=== PATIENT | female | born 1955 | race Caucasian/White ===

== ENCOUNTER 2016-12-04 06:42 | Day surgery (SDC) | payer BC ==
[~2016-12-04 06:42] MED LIST: Buffered Lidocaine 0.9% SYRIN* 5 ML/SYR SYRINGE INTRADERM ONE; Dexamethasone IV* 4 MG/ML 1 ML (4 MG) IV SLOW PU ONE; Dexamethasone IV* 4 MG/ML 1 ML (4 MG) ONE; Famotidine IV* 10 MG/ML 2 ML (20 mg) IV ONE; Famotidine IV* 10 MG/ML 2 ML (20 mg) ONE
[2016-12-04] MEDS ORDERED: ceFAZolin 2 GM PREMIX (*) 2 GM/50 ML BAG IVPB ONE (06:54)
[2016-12-04] MEDS ORDERED: Bupivacaine 0.25% SDV* 30 ML ONE (07:19)
[2016-12-04] MEDS ORDERED: Ketorolac INJ* 30 MG/ML 1 ML VIAL ONE ×2 (07:22→08:17)
[2016-12-04] MEDS ORDERED: Propofol* 10 MG/ML 20 ML BTL IV PUSH ONE (07:22)
[2016-12-04] MEDS ORDERED: fentaNYL* 50 MCG/ML 2 ML VIAL (100 MCG VIAL) ONE ×2 (07:23→09:12)
[2016-12-04] MEDS ORDERED: Midazolam* 1 MG/ML 2 ML VIAL (2 MG) ONE (07:23)
[2016-12-04] MEDS ORDERED: fentaNYL* 50 MCG/ML 2 ML VIAL (100 MCG VIAL) IV PRN (07:32)
[2016-12-04] MEDS ORDERED: HYDROcodone/ACETAMIN 5-325 MG* 1 TAB PO PRN (07:32)
[2016-12-04] MEDS ORDERED: Acetaminophen TAB* 325 MG PO PRN (07:32)
[2016-12-04] MEDS ORDERED: oxyCODONE TAB* 5 MG TAB PO PRN (07:32)
[2016-12-04] MEDS ORDERED: PROCHLORPERAZINE INJ 5 MG/ML 2 ML VIAL IV PRN (07:32)
[2016-12-04] MEDS ORDERED: EPHEDrine (Pressors)* 50 MG/ML VIAL ONE (07:56)
[2016-12-04] MEDS ORDERED: Ondansetron INJ* 2 MG/ML VIAL ONE (08:49)
[2016-12-04] MEDS ORDERED: PROCHLORPERAZINE INJ 5 MG/ML 2 ML VIAL ONE (10:35)
[2016-12-04 10:51] VITALS: BP 122/82
--- NOTE | 2016-12-05 03:20 | OP ---
OPERATIVE REPORT: DATE OF OPERATION: 12/04/16 - MOO DATE OF : 51 SURGEON: Israel Funes MD. STUDENT LIFE ADVISOR: MIKE Mabry. An cement tester assistant was needed for the entirety of the procedure to aid in positioning of the arm and retraction. ANESTHESIOLOGIST: Cem Yoo MD. ANESTHESIA: General. PRE-OP DIAGNOSES: 1. Left stage 3 basal joint arthritis. 2. Significant hyperextension laxity of the left thumb metacarpophalangeal joint. POST-OP DIAGNOSES: 1. Left stage 4 basal joint arthritis. 2. Significant hyperextension laxity of the left thumb metacarpophalangeal joint. OPERATIVE PROCEDURE: 1. Left thumb basal joint arthroplasty with trapeziectomy and distally based split flexor carpi radialis tendon transfer for thumb suspension and tendon interposition. 2. Left partial trapeziodectomy. 3. Left thumb metacarpophalangeal joint volar capsular imbrication. INDICATIONS: Julissa has had progressive pain in the base of the thumb. She is really significantly impacting her quality of life. We talked about her treatment options and nonoperative treatment options and surgery and she had wanted to proceed. We talked about the risks and benefits and expected postoperative course. ESTIMATED BLOOD LOSS: 5 mL. COMPLICATIONS: None. FINDINGS: As expected with the exception of full thickness cartilage loss of the distal pole of the scaphoid in the scaphoid trapezoid joint and also off of the distal pole of the scaphoid and the scaphotrapezial joint. DESCRIPTION OF PROCEDURE: Julissa was seen in the preoperative holding area. The correct side, site, and procedure were identified. We came back to the operating room where the anesthesia was induced, the arm was prepped and draped in the usual fashion. A time-out was performed. We exsanguinated the arm with the Esmarch and the tourniquet was inflated to 250 mmHg. I then made a longitudinal incision from the dorsal base of the first metacarpal done towards the radial styloid of about 2 to 3 cm. The dissection was carried down longitudinally to preserve the dorsal sensory radial nerves. The radial artery was identified and mobilized. I cauterized the venous plexus there and then made a longitudinal incision through the capsule and periosteum over the trapezium. Full thickness subperiosteal and capsular flaps were raised. The soft tissue around the trapezium was released with a oneida blade. I used the rongeur to excise the trapezium in its entirety. Once the entirety of the trapezium was excised and there were no bony fragments were made, I went ahead and pulled longitudinal traction on the second metacarpal and inspected the scaphotrapezoid joint. The entirety of the distal pole of the scaphoid was to void of articular cartilage. This involves both the scaphotrapezial and the scaphotrapezoid joints. I went ahead and took my osteotome and excised the proximal 2 to 3 mm of trapezoid. Once I had that excised, I irrigated out and got the joint nice and clean. I then placed axial traction on the second metacarpal and took at the wrist through flexion and extension. I could not get the base of the proximal aspect of the trapezoid to contact the distal pole of the scaphoid. At this point, I went ahead and raised the subperiosteally the soft tissue off of the dorsal radial base of the first metacarpal. I used sequentially larger drill bits to clear a bone tunnel from the dorsoradial thumb metacarpal base extending out the volar ulnar articular surface of the thumb metacarpal base. Once I had a drill hole created , we irrigated out the wound and turned our attention on the forearm. I made a 1-cm transverse incision over the distal FCR tendon just proximal to the wrist flexion crease. The tendon was created at the sheath and then brought up into the wound where it was split longitudinally and a 25-gauge wire was passed through the split. I then made 2 separate transverse incisions each about 7 or 8 cm proximal to the left and the FCR tendon sheath was released along its entirety. I then used Kimberly clamp to retrieve the 25-gauge wire and pulled it sequentially into the 2 more proximal wounds releasing the half of the FCR tendon at the musculotendinous junction. This was pulled into the distal wound and then brought up where the tendon split into the tendon, which created its muscular remnants and the edge of the tendon was sewed with 3-0 Ethibond to prevent fraying and splitting during the transfer. I then used two 25-gauge wires to shuttle the tendon down into the thumb base wound through the remaining FCR sheath distally. I then completed the split down to the base of the second metacarpal with the tenotomy scissors. The wires were used to pass the tendon through the drill hole and the base of the thumb metacarpal and then back around the intact limb of the FCR. Appropriate tension was set and this tendon transfer was secured with three 3-0 Ethibond [id number] sutures, the first grabbed in all 3 limbs of the transfer and then the second 2 sewing intact limb to intact limb. The remainder of the tendon was sewn with 4-0 Vicryl into a mat and this was placed as an interposition between the base of the trapezoid and the distal pole of the scaphoid. The remainder of the tendon was placed between the distal pole of the scaphoid and the base of the thumb metacarpal. The capsule was then closed with 3-0 Ethibond figure- of-eight sutures. Once I had a watertight seal, I went ahead and turned our attention to the volar aspect of the thumb metacarpophalangeal joint. I raised a Danika type V-shaped flap radially based over the volar aspect of the thumb metacarpophalangeal joint. The A1 ita was split. The tendon was retracted. I mobilized the volar plate by releasing it radially, proximally, and ulnarly. I then placed a Mini Mitek suture anchor into the distal metacarpal. The volar plate was advanced and sewn in place with the 2 limbs of the suture coming off of the suture anchor. This was done with the thumb MCP joint and 30 degrees of flexion. I took some 4-0 Vicryl suture and secured the remainder of the volar plate back into place. When I tested the stability, I could get the thumb just to neutral extension, but not into hyperextension. I was very pleased with this. We therefore irrigated out the wounds. All the wounds were then closed with 4-0 nylon suture. The 0.25% Marcaine was infiltrated into all of the wounds. The wounds were dressed with Xeroform, 4x4s , Sterile Webril, and a thumb spica splint was placed, holding the MCP joint in 30 degrees of flexion and the metacarpal in abduction. Once the thumb spica splint was on, the tourniquet was deflated and the hand pinked up immediately. She was then woken up and taken to the recovery room in stable condition. [id number]/[facility] [place] #: [id number] ALEKS
== END 2016-12-04 11:05 | disposition home or self-care (01) ==
LOC: OREAST 06:42
PROVIDERS: ATTEND Orthopaedic Surgery Hand Surgery
DX: M18.0 Bilateral primary osteoarthritis of first carpometacarpal joints (principal); M24.842 Other specific joint derangements of left hand, not elsewhere classified; I10 Essential (primary) hypertension; E78.5 Hyperlipidemia, unspecified; Z85.828 Personal history of other malignant neoplasm of skin; Z87.891 Personal history of nicotine dependence
CPT/HCPCS: 88304; 88311; C1713; J0690; J0780; J1100; J1885; J2250; J2405; J2704; J3010

== ENCOUNTER 2018-06-10 08:15 | Inpatient (IN) | payer BC ==
--- NOTE | 2018-05-31 14:42 | HP ---
HISTORY AND PHYSICAL: DATE OF ADMISSION/SURGERY: 06/10/18 DATE OF OFFICE VISIT: 05/31/18 SURGEON: Lynnette Ibrahim MD* (dictated by MIKE Ashford). PROCEDURE: Right total knee arthroplasty. CHIEF COMPLAINT: Right knee pain. HISTORY OF PRESENT ILLNESS: Ms. Rollins is a 62-year-old female with endstage osteoarthritis of the right knee. She has failed conservative treatment and elected to proceed with the right total knee arthroplasty. PAST MEDICAL HISTORY: 1. Hypertension. 2. Squamous cell carcinoma of the skin. PAST SURGICAL HISTORY: 1. Left foot surgery. 2. Left hand surgery. CURRENT MEDICATIONS: 1. Escitalopram 10 mg a day. 2. Atenolol 50 mg twice a day. 3. Fenofibrate 54 mg a day. 4. Simvastatin 10 mg q.h.s. 5. Vitamin B12 monthly injection. 6. Tylenol as needed. ALLERGIES: No known drug allergies. FAMILY HISTORY: Colon cancer and coronary artery disease. SOCIAL HISTORY: She is a 62-year-old female. She lives with her . She does not smoke or use drugs, uses occasional alcohol. REVIEW OF SYSTEMS: A complete 14-point review of systems reviewed with the patient. It was all negative and noncontributory. She denies a history of DVT , PE, hepatitis, HIV, or anesthesia problems. PHYSICAL EXAMINATION GENERAL: She is well developed, well nourished, in no acute distress. VITAL SIGNS: She stands 62 inches tall, weighs 147 pounds. Her blood pressure is 122/64, heart rate 60. HEENT: Normocephalic, atraumatic. NECK: Supple, no palpable lymph nodes. PULMONARY: Lungs are clear to auscultation bilaterally. CARDIAC: Regular rate and rhythm. Strong S1 and S2. ABDOMEN: Soft, nontender, nondistended. NEUROLOGICAL: She is alert and oriented x3. MUSCULOSKELETAL: Right lower extremity, the skin is intact. There are no open wounds or abrasions. There is a 12-degree valgus deformity of the right knee. There is some moderate effusion. Range of motion is 5 to 125 degrees of flexion with significant patellofemoral crepitus. Her calf is soft and nontender. She is able to dorsiflex and plantarflex. She has a 2+ dorsalis pedis pulse and intact sensation. ASSESSMENT AND PLAN: Ms. Rollins is a 62-year-old female with endstage osteoarthritis of the right knee. She has failed conservative treatment and elected to proceed with a right total knee arthroplasty. The surgery is scheduled for 06/10/[address] Ibrahim discussed the risks and benefits of the surgery at today's visit and all of her questions were answered. She will follow up with Dr. Ibrahim 2 weeks after the surgery. MIKE ASHFORD [id number]/[facility] #: [id number] ALEKS
[~2018-06-10 08:15] MED LIST changes: +Acetaminophen TAB* 325 MG PO ONE; -Buffered Lidocaine 0.9% SYRIN* 5 ML/SYR SYRINGE INTRADERM ONE; +Buffered Lidocaine 1% SYRIN* 1 ML/SYRINGE INTRADERM ONE; -Dexamethasone IV* 4 MG/ML 1 ML (4 MG) IV SLOW PU ONE; -Dexamethasone IV* 4 MG/ML 1 ML (4 MG) ONE; -Famotidine IV* 10 MG/ML 2 ML (20 mg) ONE; +Gabapentin CAP(*) 300 MG PO ONE; +Lactated Ringers 1000 ML Bag* 1,000 ML IV SCH; +Tranexamic Acid 1,000 MG in NS 0.9% 50 ML* (outpatient use) IV SCH; +celeCOXIB CAP* 200 MG PO ONE
--- OUTSIDE RECORDS SUMMARY | 2018-06-10 08:34 | XMS REPORT | Continuity of Care Document ---
:1955 External Reference #:[id number] Author Name SadiaSarah will Care Team Providers Name Role Phone Tory Crowell MD Primary Care Physician Unavailable Payers Date Identification Numbers Payment Provider Subscriber Effective: 2016 Policy Number: [id number] [employer] Darius Vigil PayID: [id number] [address] [address] [place] [address] Effective: 2010 Policy Number: [id number] BS Of [place] Darius Vigil Expires: 2014 PayID: [id number] [address] [address] [place] [address] Advance Directives Description No Information Available Problems Date Description Provider Status Onset: 04/24/2010 Mixed hyperlipidemia Anila Melton M.D., FACP Active Onset: 04/24/2010 Benign essential hypertension Spike Hill M.D. Active Onset: 10/29/2016 Localized, primary osteoarthritis Israel Funes MD Active of the hand Onset: 12/11/2017 Localized, primary osteoarthritis Lynnette Ibrahim M.D. 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 Tobacco Use Start: Unknown End: Former Cigarette Smoker Quit ~ 1982 Unknown 1 Pack Daily Smoking Status Reviewed: 05/31/18 Former Cigarette Smoker Quit ~ 1982 1 Pack Daily ETOH Use Currently consumes 2 glasses of wine alcohol daily Tobacco Use Start: Unknown End: Patient is a former quit at age 28 Unknown smoker Exercise Type/Frequency Exercises regularly Allergies, Adverse Reactions, Alerts Description No Known Drug Allergies Medications Medication Date Status Form Strength Qnty SIG Indications Ordering Provider Voltaren 04/30 Active Gel 1% 100un apply 4 Gm M25.562 its to affected Varn, area four N.P. times daily BD 05/05 Active 3ml 6unit use as s directed for Varn, vitamin b 12 N.P. injection once a month Fenofibrate 04/24 Active Tablets 54mg 90tab take 1 s tablet by Varn, mouth daily N.P. Omeprazole 02/[address] 20mg 90cap take 1 s capsule once Varn, daily if N.P. needed Syringes 08/15 Active 25Gauge 1 30uni use as Inch ts directed for Varn, vitamin b12 N.P. injections once monthly Simvastatin Active Tablets 10mg 90tab take 1 s tablet at Varn, bedtime N.P. Atenolol Active Tablets 50mg 90tab take 1 Ayse /0000 s tablet twice Varn, a day N.P. Cyanocobalamin Active Solution 1000mcg/M 1unit inject 1 L s milliliters Varn, intramuscula N.P. r once a month Tylenol Active Escitalopram 04/30 Hx Tablets 10mg 30tab 1 by mouth F32.9 s every day Varn, - N.P. 05/30 Meloxicam 12/11 Hx Tablets 15mg 30tab 1 by mouth M25.461 Lynnette s every day Patrice - (not taking) Omid 04/30 Tramadol HCL 12/04 Hx Tablets 50mg 30tab 1-2 tablets s every 6 Funes, - hours as 03/17 Ibuprofen 12/04 Hx Tablets 600mg 60tab 1 by mouth s three times Funes, - a day as 05/30 needed Hydrocodone-Jani 12/01 Hx Tablets 5-325mg 30tab 1 or 2 tabs Israel taminophen s by mouth Funes, - every 6-8 12/04 hours needed for postop pain Syringe 2-3 ML 03/31 Hx Misc 3ml 30uni to use for ts b12 Varn, - injections N.P. 03/31 Escitalopram 08/22 Hx Tablets 10mg 30tab 1 by mouth 311 s every day Varn, - N.P. 02/28 Ciclopirox 02/21 Hx Solution 8% 6.600 apply to 110.1 ml affected Varn, - toenails and N.P. 08/22 skin at bedtime Lac-Hydrin 02/21 Hx Cream 12% 385gm apply once 782.1 daily as Varn, - needed N.P. 02/28 Fluticasone 02/01 Hx Suspension 50mcg/Act 1bott 1 spray each le nostril in Varn, - in the N.P. 05/30 Physical 07/23 Hx left ankle 719.47 Anila pain Joanie Melton M.D., 11/05 FACP Omeprazole 02/[address] 20mg 90cap 1 tablet Anila s daily as Linh, - needed for Omid, 01/04 stomach FACP discomfort Syringes 08/15 Hx Anila /2009 Joanie Melton M.D., 08/15 FACP Minocycline HCL Hx 50mg Casa, /0000 Blanquita, - 10/24 Minocycline HCL Hx 50mg Casa, /0000 Blanquita - 10/24 Prempro Hx 0.625-2.5 1 tablet Linh, /0000 mg daily AnilaJoanie MD 12/06 Sulfacetamide Hx 10% apply daily Casa, Sodium /0000 Blanquita, Joanie DUMONT 08/22 Diazepam Hx 5mg Montanye, /0000 Art - 10/24 Valacyclovir Hx 500mg Linh, HCL /0000 Joanie High MD 10/24 Oracea Hx 40mg Casa, /0000 Joanie Juares MD 10/24 Finacea Hx 15% Casa, /0000 Joanie Juares MD 10/24 Rhinocort Aqua Hx 32mcg/Act 3unit 1 spray each Anila /0000 s nostril Linh, - daily M.DCarlos, 01/04 Medications Administered in Office Medication Date Status Form Strength Qnty SIG Indications Ordering Provider Synvisc Or Administered Injection Lynnette Synvisc-One Onesimo Ibrahim M.D. Injection 1 MG Synvisc Or Administered Injection Lynnette Synvisc-One Blanca Ibrahim M.D. Injection 1 MG Synvisc Or Administered Injection Lynnette Synvisc-One Blanca Ibrahim M.D. Injection 1 MG Synvisc Or Administered Injection Lynnette Synvisc-One Blanca Ibrahim M.D. Injection 1 MG Synvisc Or Administered Injection Lynnette Synvisc-One Blanca Ibrahim M.D. Injection 1 MG Synvisc Or Administered Injection Lynnette Synvisc-One Blanca Ibrahim M.D. Injection 1 MG Depomedrol Administered Injection Lynnette 40MG Blanca Ibrahim M.D. Depomedrol Administered Injection Lynnette 40MG Blanca Ibrahim M.D. B-12 Injection Administered Injection Nurse Visit 014 A Immunizations CPT Code Status Date Vaccine Lot # [id number] Given 11/12/2017 Influenza Virus Vaccine, Quadrivalent, Split, Preservative Free [id number] Given 12/25/2015 Flu Vaccine NOS 16550 Given 11/25/2014 Influenza Virus Vaccine, Quadrivalent, Split, Preservative Free Q2037 Given 10/24/2013 Fluvirin Im 3Yrs And Older Q2037 Given 12/25/2012 Fluvirin Im 3Yrs And Older Q2035 Given 11/12/2011 Afluria Vaccine 06681 Given 11/06/2010 Influenza Virus 3Yrs & Over 10630 Given 11/06/2010 Influenza Virus 3Yrs & Over 93584 Given 11/06/2010 Influenza Virus 3Yrs & Over [id number] 16567 Given 12/06/2009 Influenza Virus 3Yrs & Over 01946 Given 12/13/2008 Influenza Virus 3Yrs & Over 58904 Given 09/02/2007 Tdap - Tetanus/Diptheria/Acellular Pertussis Vital Signs Date Vital Result Comment 05/31/2018 12:57pm Height 62 inches 5'2" Weight 147.00 lb Heart Rate 60 /min BP Systolic 122 mmHg BP Diastolic 62 mmHg Respiratory Rate 18 /min Body Temperature 98.9 F Pain Level 0 BMI (Body Mass Index) 26.9 kg/m2 05/26/2018 3:37pm Height 62 inches 5'2" Weight 150.00 lb Heart Rate 60 /min BP Systolic Sitting 137 mmHg BP Diastolic Sitting 81 mmHg O2 % BldC Oximetry 98 % BMI (Body Mass Index) 27.4 kg/m2 05/07/2018 9:10am Height 62 inches 5'2" Weight 145.00 lb Heart Rate 60 /min BP Systolic Sitting 110 mmHg BP Diastolic Sitting 70 mmHg Respiratory Rate 18 /min Pain Level 3 BMI (Body Mass Index) 26.5 kg/m2 04/30/2018 3:34pm Height 62 inches 5'2" Weight 152.00 lb Heart Rate 56 /min BP Systolic 132 mmHg BP Diastolic 80 mmHg Body Temperature 97.7 F O2 % BldC Oximetry 98 % BMI (Body Mass Index) 27.8 kg/m2 04/16/2018 4:05pm Height 62 inches 5'2" Weight 151.00 lb Heart Rate 69 /min BP Systolic 138 mmHg BP Diastolic 82 mmHg Body Temperature 97.7 F O2 % BldC Oximetry 97 % BMI (Body Mass Index) 27.6 kg/m2 02/17/2018 9:14am Height 62 inches 5'2" Weight 145.00 lb BP Systolic 124 mmHg BP Diastolic 84 mmHg Body Temperature 98.2 F BMI (Body Mass Index) 26.5 kg/m2 02/01/2018 8:52am Height 62.5 inches 5'2.50" Weight 145.00 lb BP Systolic 120 mmHg BP Diastolic 80 mmHg Body Temperature 97.6 F BMI (Body Mass Index) 26.1 kg/m2 01/25/2018 8:34am Height 62 inches 5'2" Weight 145.00 lb BP Systolic 108 mmHg BP Diastolic 64 mmHg Body Temperature 98.2 F BMI (Body Mass Index) 26.5 kg/m2 01/18/2018 8:23am Height 62 inches 5'2" Weight 144.00 lb BP Systolic 118 mmHg BP Diastolic 72 mmHg Body Temperature 98.4 F BMI (Body Mass Index) 26.3 kg/m2 01/01/2018 3:43pm Height 62 inches 5'2" Heart Rate 63 /min BP Systolic 108 mmHg BP Diastolic 60 mmHg Respiratory Rate 17 /min Pain Level 2 12/11/2017 11:24am Height 62 inches 5'2" Weight 150.00 lb BP Systolic 131 mmHg BP Diastolic 82 mmHg Respiratory Rate 16 /min Pain Level 5 BMI (Body Mass Index) 27.4 kg/m2 10/21/2017 3:00pm Height 62 inches 5'2" Weight 147.00 lb Heart Rate 55 /min BP Systolic 113 mmHg BP Diastolic 71 mmHg O2 % BldC Oximetry 100 % BMI (Body Mass Index) 26.9 kg/m2 03/17/2017 3:48pm Heart Rate 62 /min BP Systolic 130 mmHg BP Diastolic 78 mmHg Respiratory Rate 16 /min Body Temperature 97.0 F Pain Level 0 11/14/2016 3:00pm Heart Rate 64 /min BP Systolic Sitting 128 mmHg BP Diastolic Sitting 78 mmHg Body Temperature 97.8 F 10/29/2016 12:57pm Height 62.5 inches 5'2.50" Weight 157.00 lb Heart Rate 64 /min BP Systolic 105 mmHg BP Diastolic 71 mmHg Body Temperature 98.3 F Pain Level 7 BMI (Body Mass Index) 28.3 kg/m2 10/16/2016 9:51am Height 62.5 inches 5'2.50" Weight 157.25 lb Heart Rate 74 /min BP Systolic 122 mmHg BP Diastolic 70 mmHg Body Temperature 97.6 F O2 % BldC Oximetry 99 % BMI (Body Mass Index) 28.3 kg/m2 04/11/2016 8:32am Height 62.25 inches 5'2.25" Weight 154.25 lb Heart Rate 61 /min BP Systolic 120 mmHg BP Diastolic 80 mmHg Body Temperature 98.6 F O2 % BldC Oximetry 94 % BMI (Body Mass Index) 28.0 kg/m2 10/10/2015 11:03am Height 62.25 inches 5'2.25" Weight 154.50 lb Heart Rate 60 /min BP Systolic Sitting 136 mmHg BP Diastolic Sitting 82 mmHg Body Temperature 98.3 F O2 % BldC Oximetry 100 % BMI (Body Mass Index) 28.0 kg/m2 02/28/2015 9:35am Height 62.5 inches 5'2.50" Weight 154.00 lb Heart Rate 60 /min BP Systolic Sitting 136 mmHg BP Diastolic Sitting 88 mmHg Body Temperature 98.1 F O2 % BldC Oximetry 99 % BMI (Body Mass Index) 27.7 kg/m2 08/22/2014 8:37am Height 62.5 inches 5'2.50" Weight 149.75 lb Heart Rate 63 /min BP Systolic 159 mmHg BP Diastolic 96 mmHg BP Systolic Recheck 138 mmHg BP Diastolic Recheck 88 mmHg Body Temperature 98.6 F BMI (Body Mass Index) 27.0 kg/m2 02/21/2014 8:54am Height 62.5 inches 5'2.50" Weight 145.00 lb Heart Rate 60 /min BP Systolic Sitting 128 mmHg BP Diastolic Sitting 78 mmHg Body Temperature 99.2 F BMI (Body Mass Index) 26.1 kg/m2 02/01/2013 1:57pm Height 62.5 inches 5'2.50" Weight 153.25 lb Heart Rate 68 /min BP Systolic Sitting 142 mmHg BP Diastolic Sitting 80 mmHg BMI (Body Mass Index) 27.6 kg/m2 01/21/2012 3:44pm Height 62.5 inches 5'2.50" Weight 143.00 lb Heart Rate 68 /min BP Systolic Sitting 124 mmHg BP Diastolic Sitting 80 mmHg BMI (Body Mass Index) 25.7 kg/m2 01/05/2012 10:32am Height 62.5 inches 5'2.50" Weight 144.00 lb Heart Rate 60 /min BP Systolic Sitting 136 mmHg BP Diastolic Sitting 80 mmHg BMI (Body Mass Index) 25.9 kg/m2 12/05/2010 3:45pm Height 62 inches 5'2" Weight 147.00 lb Heart Rate 76 /min BP Systolic Sitting 148 mmHg BP Diastolic Sitting 80 mmHg BMI (Body Mass Index) 26.9 kg/m2 11/06/2010 12:50pm Height 62 inches 5'2" Weight 144.00 lb Heart Rate 68 /min BP Systolic Sitting 126 mmHg BP Diastolic Sitting 80 mmHg BMI (Body Mass Index) 26.3 kg/m2 07/23/2010 3:41pm Height 62 inches 5'2" Weight 145.00 lb BMI (Body Mass Index) 26.5 kg/m2 06/06/2010 3:50pm Weight 146.00 lb Heart Rate 66 /min BP Systolic Sitting 124 mmHg BP Diastolic Sitting 82 mmHg 04/24/2010 3:47pm Weight 147.00 lb Heart Rate 62 /min BP Systolic 130 mmHg BP Diastolic 80 mmHg 02/20/2010 2:23pm Weight 146.75 lb Heart Rate 78 /min BP Systolic 118 mmHg BP Diastolic 82 mmHg 12/06/2009 9:09am Weight 147.75 lb Heart Rate 72 /min BP Systolic 120 mmHg BP Diastolic 78 mmHg Results Test Date Facility Test Result H/L Range Note CBC Auto Diff 05/26/2018 [facility] White Blood 7.3 10^3/uL N 3.5-10.[address] [place] [address] [phone] Red Blood Count 3.63 10^6/uL Low 3.70-4.87 Hemoglobin 12.4 g/dL N 12.0-16.0 Hematocrit 36 % N 33-41 Mean Corpuscular Volume 99 fL High 80-97 Mean Corpuscular Hemoglobin 34 pg High 27-31 Mean Corpuscular HGB Conc 35 g/dL N 31-36 Red Cell Distribution Width 13 % N 10.5-15 Platelet Count 214 10^3/uL N 150-450 Mean Platelet Volume 9.1 fL N 7.4-10.4 Abs Neutrophils 4.5 10^3/uL N 1.5-7.7 Abs Lymphocytes 2.0 10^3/uL N 1.0-4.8 Abs Monocytes 0.6 10^3/uL N 0-0.8 Abs Eosinophils 0.2 10^3/uL N 0-0.6 Abs Basophils 0 10^3/uL N 0-0.2 Abs Nucleated RBC 0 10^3/uL Granulocyte % 61.8 % Lymphocyte % 27.0 % Monocyte % 8.5 % Eosinophil % 2.1 % Basophil % 0.6 % Nucleated Red Blood Cells % 0 Comp Metabolic Panel 05/26/2018 [facility] Sodium 138 mmol/L N 135-[address] [place] [address] [phone] Potassium 4.3 mmol/L N 3.5-5.0 Chloride 105 mmol/L N 101-111 Co2 Carbon Dioxide 26 mmol/L N 22-32 Anion Gap 7 mmol/L N 2-11 Glucose 92 mg/dL N 70-100 Blood Urea Nitrogen 19 mg/dL N 6-24 Creatinine 0.79 mg/dL N 0.51-0.95 BUN/Creatinine Ratio 24.1 High 8-20 Calcium 9.2 mg/dL N 8.6-10.3 Total Protein 7.0 g/dL N 6.4-8.9 Albumin 4.3 g/dL N 3.2-5.2 Globulin 2.7 g/dL N 2-4 Albumin/Globulin Ratio 1.6 N 1-3 Total Bilirubin 0.40 mg/dL N 0.2-1.0 Alkaline Phosphatase 52 U/L N 34-104 Alt 15 U/L N 7-52 Ast 17 U/L N 13-39 Egfr Non- 73.3 >60 Egfr 88.7 >60 1 Urinalysis Profile 05/26/2018 [facility] Urine Color Straw [address] [place] [address] [phone] Urine Appearance Clear Urine Specific [place] 1.005 Low 1.010-1.030 Urine pH 5.0 N 5-9 Urine Urobilinogen Negative Negative Urine Ketones Negative Negative Urine Protein Negative Negative Urine Leukocytes Negative Negative Urine Blood 1+ Abnormal Negative Urine Nitrite Negative Negative Urine Bilirubin Negative Negative Urine Glucose Negative Negative Urine White Blood Cell Trace(0-5/hpf) Absent Urine Red Blood Cell Trace(0-2/hpf) Absent Urine Bacteria Absent Absent Inr/Protime 05/26/2018 [facility] Inr 0.94 N 0.77-1.[address] [place], [place] [id number] [phone] Hepatitis Acute 05/26/2018 [facility] Hepatitis B Nonreactive Nonreactive Panel [address] [place] [address] Antigen [phone] Hepatitis B Core IgM Nonreactive Nonreactive Hepatitis A AB IgM Nonreactive Nonreactive HCV Index < 0.0 Index Hepatitis C Antibody Nonreactive Nonreactive Urine Culture And 05/26/2018 [facility] Urine Culture SEE RESULT [address] [place] [address] [phone] Laboratory test 11/19/2017 [facility] Vitamin B12 417 pg/mL N 180-9 [address] [place] [address] [phone] Lipid Profile 2017 [facility] Triglycerides 164 mg/dL 4 (Trig/Chol/HDL) [address] [place], [place] [id number] [phone] Cholesterol 211 mg/dL 5 HDL Cholesterol 71.1 mg/dL 6 LDL Cholesterol 107 mg/dL 7 Comp Metabolic Panel 2017 [facility] Sodium 140 mmol/L N 135-[address] [place] [address] [phone] Potassium 4.9 mmol/L N 3.5-5.0 Chloride 108 mmol/L N 101-111 Co2 Carbon Dioxide 28 mmol/L N 22-32 Anion Gap 4 mmol/L N 2-11 Glucose 102 mg/dL High 70-100 Blood Urea Nitrogen 14 mg/dL N 6-24 Creatinine 0.79 mg/dL N 0.51-0.95 BUN/Creatinine Ratio 17.7 N 8-20 Calcium 9.3 mg/dL N 8.6-10.3 Total Protein 6.4 g/dL N 6.4-8.9 Albumin 4.3 g/dL N 3.2-5.2 Globulin 2.1 g/dL N 2-4 Albumin/Globulin Ratio 2.0 N 1-3 Total Bilirubin 0.70 mg/dL N 0.2-1.0 Alkaline Phosphatase 62 U/L N 34-104 Alt 24 U/L N 7-52 Ast 19 U/L N 13-39 Egfr Non- 73.3 >60 Egfr 88.7 >60 8 Laboratory test 12/04/2016 [facility] Surgical Pathology SEE RESULT 9, [address] [place] [address] [phone] Lipid Profile 04/07/2016 [facility] Triglycerides 190 mg/dL N 11, 12 (Trig/Chol/HDL) [address] [place] [address] [phone] Cholesterol 185 mg/dL N 13 HDL Cholesterol 70.9 mg/dL N 14 LDL Cholesterol 76 mg/dL N 15 Comp Metabolic Panel 04/07/2016 [facility] Sodium 140 mmol/L N 133-[address] [place] [address] [phone] Potassium 4.5 mmol/L N 3.5-5.0 Chloride 104 mmol/L N 101-111 Co2 Carbon Dioxide 28 mmol/L N 22-32 Anion Gap 8 mmol/L N 2-11 Glucose 87 mg/dL N 70-100 Blood Urea Nitrogen 16 mg/dL N 6-24 Creatinine 0.75 mg/dL N 0.51-0.95 BUN/Creatinine Ratio 21.3 High 8-20 Calcium 9.5 mg/dL N 8.6-10.3 Total Protein 6.7 g/dL N 6.4-8.9 Albumin 4.3 g/dL N 3.2-5.2 Globulin 2.4 g/dL N 2-4 Albumin/Globulin Ratio 1.8 N 1-3 Total Bilirubin 0.50 mg/dL N 0.2-1.0 Alkaline Phosphatase 69 U/L N 34-104 Alt 21 U/L N 7-52 Ast 16 U/L N 13-39 Egfr Non- 78.3 N >60 Egfr 100.7 N >60 16 Laboratory test 04/07/2016 [facility] Vitamin B12 574 pg/mL N 180-914 17 finding [address] [place] [address] [phone] CBC Auto Diff 10/10/2015 [facility] White Blood 6.1 10^3/uL N 3.5-10.8 [address] [place] [address] [phone] Red Blood Count 3.75 10^6/uL Low 4.0-5.4 Hemoglobin 12.7 g/dL N 12.0-16.0 Hematocrit 38 % N 35-47 Mean Corpuscular Volume 100 fL High 80-97 Mean Corpuscular Hemoglobin 34 pg High 27-31 Mean Corpuscular HGB Conc 34 g/dL N 31-36 Red Cell Distribution Width 13 % N 10.5-15 Platelet Count 208 10^3/uL N 150-450 Mean Platelet Volume 10 um3 N 7.4-10.4 Abs Neutrophils 3.7 10^3/uL N 1.5-7.7 Abs Lymphocytes 1.5 10^3/uL N 1.0-4.8 Abs Monocytes 0.6 10^3/uL N 0-0.8 Abs Eosinophils 0.1 10^3/uL N 0-0.6 Abs Basophils 0.1 10^3/uL N 0-0.2 Abs Nucleated RBC 0.01 10^3/uL N Granulocyte % 61.5 % N 38-83 Lymphocyte % 24.2 % Low 25-47 Monocyte % 10.3 % High 1-9 Eosinophil % 1.6 % N 0-6 Basophil % 2.4 % High 0-2 Nucleated Red Blood Cells % 0.1 N Comp Metabolic Panel 10/10/2015 [facility] Sodium 137 mmol/L N 133-145 [address] [place] [address] [phone] Potassium 4.6 mmol/L N 3.5-5.0 Chloride 104 mmol/L N 101-111 Co2 Carbon Dioxide 25 mmol/L N 22-32 Anion Gap 8 mmol/L N 2-11 Glucose 94 mg/dL N 70-100 Blood Urea Nitrogen 14 mg/dL N 6-24 Creatinine 0.85 mg/dL N 0.51-0.95 BUN/Creatinine Ratio 16.5 N 8-20 Calcium 9.6 mg/dL N 8.6-10.3 Total Protein 6.9 g/dL N 6.4-8.9 Albumin 4.3 g/dL N 3.2-5.2 Globulin 2.6 g/dL N 2-4 Albumin/Globulin Ratio 1.7 N 1-3 Total Bilirubin 0.50 mg/dL N 0.2-1.0 Alkaline Phosphatase 45 U/L N 34-104 Alt 16 U/L N 7-52 Ast 16 U/L N 13-39 Egfr Non- 68.0 N >60 Egfr 87.4 N >60 18 Inr/Protime 10/10/2015 [facility] Inr 0.96 N 0.89-1.11 [address] [place] [address] [phone] Basic Metabolic 08/09/2015 [facility] Sodium 138 mmol/L N 133- 145 Panel [address] [place] [address] [phone] Potassium 4.2 mmol/L N 3.5-5.0 Chloride 105 mmol/L N 101-111 Co2 Carbon Dioxide 25 mmol/L N 22-32 Anion Gap 8 mmol/L N 2-11 Glucose 94 mg/dL N 70-100 Blood Urea Nitrogen 12 mg/dL N 6-24 Creatinine 0.83 mg/dL N 0.51-0.95 BUN/Creatinine Ratio 14.5 N 8-20 Calcium 9.6 mg/dL N 8.6-10.3 Egfr Non- 69.9 N >60 Egfr 89.9 N >60 19 Laboratory test finding 08/09/2015 [facility] Alt (SGPT) 30 U/L N 7-52 [address] [place] [address] [phone] Ast (Sgot) 25 U/L N 13-39 Laboratory test 02/28/2015 [facility] Cytology SEE RESULT BELOW 20 finding [address] [place] [address] [phone] HPV Rna Ww/Reflex Genotype Negative N Negative 21 Lipid Profile 02/19/2015 [facility] Triglycerides 115 mg/dL N 22 (Trig/Chol/HDL) [address] [place] [address] [phone] Cholesterol 229 mg/dL N 23 HDL Cholesterol 73.8 mg/dL N 24 LDL Cholesterol 132 mg/dL N 25 Comp Metabolic Panel 02/19/2015 [facility] Sodium 138 mmol/L N 133-145 [address] [place] [address] [phone] Potassium 4.8 mmol/L N 3.5-5.0 Chloride 104 mmol/L N 101-111 Co2 Carbon Dioxide 27 mmol/L N 22-32 Anion Gap 7 mmol/L N 2-11 Glucose 98 mg/dL N 70-100 Blood Urea Nitrogen 17 mg/dL N 6-24 Creatinine 0.88 mg/dL N 0.51-0.95 BUN/Creatinine Ratio 19.3 N 8-20 Calcium 9.5 mg/dL N 8.6-10.3 Total Protein 6.9 g/dL N 6.4-8.9 Albumin 4.6 g/dL N 3.2-5.2 Globulin 2.3 g/dL N 2-4 Albumin/Globulin Ratio 2.0 N 1-3 Total Bilirubin 0.50 mg/dL N 0.2-1.0 Alkaline Phosphatase 61 U/L N 34-104 Alt 30 U/L N 7-52 Ast 28 U/L N 13-39 Egfr Non- 65.3 N >60 Egfr 84.0 N >60 26 Laboratory test 02/19/2015 [facility] Vitamin B12 496 pg/mL N 180-914 [address] [place] [address] [phone] CBC Auto Diff 02/19/2015 [facility] White Blood 5.4 10^3/uL N 3.5-10.[address] [place] [address] [phone] Red Blood Count 3.89 10^6/uL Low 4.0-5.4 Hemoglobin 13.5 g/dL N 12.0-16.0 Hematocrit 40 % N 35-47 Mean Corpuscular Volume 102 fL High 80-97 Mean Corpuscular Hemoglobin 35 pg High 27-31 Mean Corpuscular HGB Conc 34 g/dL N 31-36 Red Cell Distribution Width 13 % N 10.5-15 Platelet Count 209 10^3/uL N 150-450 Mean Platelet Volume 8 um3 N 7.4-10.4 Abs Neutrophils 3.3 10^3/uL N 1.5-7.7 Abs Lymphocytes 1.4 10^3/uL N 1.0-4.8 Abs Monocytes 0.4 10^3/uL N 0-0.8 Abs Eosinophils 0.1 10^3/uL N 0-0.6 Abs Basophils 0.1 10^3/uL N 0-0.2 Abs Nucleated RBC 0 10^3/uL N Granulocyte % 62.2 % N 38-83 Lymphocyte % 25.5 % N 25-47 Monocyte % 7.8 % N 1-9 Eosinophil % 2.6 % N 0-6 Basophil % 1.9 % N 0-2 Nucleated Red Blood Cells % 0 N Lipid Profile 02/15/2014 [facility] Triglycerides 136 mg/dL N 28 (Trig/Chol/HDL) [address] [place] [address] [phone] Cholesterol 197 mg/dL N 29 HDL Cholesterol 71.5 mg/dL N 30 LDL Cholesterol 98 mg/dL N 31 CBC Auto Diff 02/15/2014 [facility] White Blood 6.6 10^3/uL N 4.8-10.[address] [place] [address] [phone] Red Blood Count 3.70 10^6/uL Low 4.0-5.4 Hemoglobin 12.6 g/dL N 12.0-16.0 Hematocrit 37 % N 35-47 Mean Corpuscular Volume 101 fL High 80-97 Mean Corpuscular Hemoglobin 34 pg High 27-31 Mean Corpuscular HGB Conc 34 g/dL N 31-36 Red Cell Distribution Width 13 % N 10.5-15 Platelet Count 201 10^3/uL N 150-450 Mean Platelet Volume 9 um3 N 7.4-10.4 Abs Neutrophils 4.4 10^3/uL N 1.5-7.7 Abs Lymphocytes 1.4 10^3/uL N 1.0-4.8 Abs Monocytes 0.5 10^3/uL N 0-0.8 Abs Eosinophils 0.2 10^3/uL N 0-0.6 Abs Basophils 0.1 10^3/uL N 0-0.2 Abs Nucleated RBC 0 10^3/uL N Granulocyte % 66.7 % N 38-83 Lymphocyte % 21.2 % Low 25-47 Monocyte % 8.2 % N 1-9 Eosinophil % 3.0 % N 0-6 Basophil % 0.9 % N 0-2 Nucleated Red Blood Cells % 0 N Laboratory test 02/15/2014 [facility] Vitamin B12 480 pg/mL N 180-914 32 finding [address] [place] [address] [phone] Comp Metabolic 02/15/2014 [facility] Sodium 139 mmol/L N 133- 145 Panel [address] [place] [address] [phone] Potassium 4.2 mmol/L N 3.5-5.0 Chloride 105 mmol/L N 101-111 Co2 Carbon Dioxide 28 mmol/L N 22-32 Anion Gap 6 mmol/L N 2-11 Glucose 93 mg/dL N 70-100 Blood Urea Nitrogen 11 mg/dL N 6-24 Creatinine 0.80 mg/dL N 0.51-0.95 BUN/Creatinine Ratio 13.8 N 8-20 Calcium 9.3 mg/dL N 8.6-10.3 Total Protein 6.8 g/dL N 6.4-8.9 Albumin 4.3 g/dL N 3.2-5.2 Globulin 2.5 g/dL N 2-4 Albumin/Globulin Ratio 1.7 N 1-3 Total Bilirubin 0.50 mg/dL N 0.2-1.0 Alkaline Phosphatase 52 U/L N 34-104 Alt 22 U/L N 7-52 Ast 23 U/L N 13-39 Egfr Non- 73.2 N >60 Egfr 94.1 N >60 33 CBC Auto Diff 03/01/2013 [facility] White Blood 5.6 10^3/uL 4.8-10.[address] [place] [address] [phone] Red Blood Count 3.83 10^6/uL Low 4.0-5.4 Hemoglobin 13.4 g/dL 12.0-16.0 Hematocrit 38 % 35-47 Mean Corpuscular Volume 98 fL High 80-97 Mean Corpuscular Hemoglobin 35 pg High 27-31 Mean Corpuscular HGB Conc 36 g/dL 31-36 Red Cell Distribution Width 13 % 10.5-15 Platelet Count 216 10^3/uL 150-450 Mean Platelet Volume 9 um3 7.4-10.4 Abs Neutrophils 3.2 10^3/uL 1.5-7.7 Abs Lymphocytes 1.7 10^3/uL 1.0-4.8 Abs Monocytes 0.5 10^3/uL 0-0.8 Abs Eosinophils 0.2 10^3/uL 0-0.6 Abs Basophils 0 10^3/uL 0-0.2 Abs Nucleated RBC 0 10^3/uL Granulocyte % 57.1 % 38-83 Lymphocyte % 30.1 % 25-47 Monocyte % 9.2 % High 1-9 Eosinophil % 2.9 % 0-6 Basophil % 0.7 % 0-2 Nucleated Red Blood Cells % 0.1 Laboratory test 03/01/2013 [facility] TSH (Thyroid 1.51 0.34- 5.60 [address] Stimulating miu/[place] [address] Horm) [phone] Comp Metabolic 03/01/2013 [facility] Sodium 137 mmol/L 133- [address] [place] [address] [phone] Potassium 4.4 mmol/L 3.5-5.0 Chloride 105 mmol/L 101-111 Co2 Carbon Dioxide 27.0 mmol/L 22-32 Anion Gap 5.0 mmol/L 2-11 Glucose 107 mg/dL High 70-100 Blood Urea Nitrogen 13 mg/dL 6-24 Creatinine 0.80 mg/dL 0.50-1.40 BUN/Creatinine Ratio 16.3 8-20 Calcium 9.3 mg/dL 8.1-9.9 Total Protein 6.2 g/dL 6.2-8.1 Albumin 4.4 g/dL 3.6-5.4 Globulin 1.8 g/dL Low 2-4 Albumin/Globulin Ratio 2.4 1-3 Total Bilirubin 0.8 mg/dL 0.4-1.5 Alkaline Phosphatase 47 U/L 30-110 Alt 16 U/L 14-54 Ast 20 U/L 12-42 Egfr Non- 73.4 >60 Egfr 94.4 >60 35 Lipid Profile 03/01/2013 [facility] Triglycerides 122 mg/dL 40-200 (Trig/Chol/HDL) [address] [place] [address] [phone] Cholesterol 206 mg/dL High Less than 200 HDL Cholesterol 75 mg/dL High 40-60 36 Cholesterol/HDL Ratio 2.8 Average 1-4.44 LDL Cholesterol 106.6 High Less Than 100 37 Laboratory test 03/01/2013 [facility] Vitamin B12 579 pg/mL 180-914 38 finding [address] [place] [address] [phone] Laboratory test 01/21/2012 [facility] Surgical Pathology RUN DATE: [address] [place] [address] <SEE [phone] NOTE> Lipid Profile 01/15/2012 [facility] Triglycerides 132 mg/dL 40-200 (Trig/Chol/HDL) [address] [place], [place] [address] [phone] Cholesterol 210 mg/dL High Less than 200 HDL Cholesterol 78 mg/dL High 40-60 40 Cholesterol/HDL Ratio 2.7 AVERAGE 1-4.44 LDL Cholesterol 105.6 mg/dL High Less Than 100 41 Comp Metabolic Panel 01/15/2012 [facility] Sodium 139 mmol/L 133-145 [address] [place] [address] [phone] Potassium 4.6 mmol/L 3.5-5.0 Chloride 103 mmol/L 101-111 Co2 Carbon Dioxide 29.0 mmol/L 22-32 Anion Gap 7.0 mmol/L 2-11 Glucose 97 mg/dL 70-100 Blood Urea Nitrogen 14 mg/dL 6-24 Creatinine 0.80 mg/dL 0.50-1.40 BUN/Creatinine Ratio 17.5 8-20 Calcium 9.6 mg/dL 8.1-9.9 Total Protein 6.9 GM/DL 6.2-8.1 Albumin 4.2 GM/DL 3.6-5.4 Globulin 2.7 GM/DL 2-4 Albumin/Globulin Ratio 1.6 1-3 Total Bilirubin 1.2 mg/dL 0.4-1.5 Alkaline Phosphatase 56 U/L 30-110 Alt 20 U/L 14-54 Ast 22 U/L 12-42 Egfr Non- 73.7 >60 Egfr 94.7 >60 42 Laboratory test 01/15/2012 [facility] TSH (Thyroid 2.22 0.34- 5.60 [address] Stimulating MIU/[place] [address] Horm) [phone] Vitamin B12 508 pg/mL 180-914 44 CBC With 01/15/2012 [facility] White Blood 5.2 10^3/uL 4.8- 10.8 Manual Diff [address] Count [place], [place] [id number] [phone] Red Blood Count 3.81 10^6/uL Low 4.0-5.4 Hemoglobin 13.1 g/dL 12.0-16.0 Hematocrit 38 % 35-47 Mean Corpuscular Volume 100 fL High 80-97 Mean Corpuscular Hemoglobin 34 pg High 27-31 Mean Corpuscular HGB Conc 35 g/dL 31-36 Red Cell Distribution Width 13 % 10.5-15 Platelet Count 205 10^3/uL 150-450 Mean Platelet Volume 9 um3 7.4-10.4 Abs Neutrophils 3.3 10^3/uL 1.5-7.7 Abs Lymphocytes 1.2 10^3/uL 1.0-4.8 Abs Monocytes 0.4 10^3/uL 0-0.8 Abs Eosinophils 0.2 10^3/uL 0-0.6 Abs Basophils 0.1 10^3/uL 0-0.2 Abs Nucleated RBC 0.01 10^3/uL Neutrophil % 73.0 % 38-83 Band % 1.0 % 0-8 Lymphocytes % 19.0 % Low 25-47 Monocytes % 4.0 % 0-13 Eosinophils % 3.0 % 0-6 Basophil % 0 % 0-2 Reactive Lymph % 0 % 0-6 Metamyelocytes % 0 % 0-2 Myelocytes % 0 % 0-1 Promyelocytes % 0 % Blast % 0 % Macrocytosis 1+ Laboratory test 01/15/2012 [facility] Ferritin 79 NG/ML 11- 307 [address] [place] [address] [phone] Laboratory test 01/05/2012 [facility] Cytology RUN DATE: [address] 01/05/ <[place] [address] NOTE> [phone] Ua Routine 01/05/2012 [facility] Ua Specific 1.020 [place] Ua PH 5 Ua Color yellow Ua Appera clear Ua WBC neg Ua Protein trace Ua Glucose neg Ua Ketones trace Ua Bilirubin neg Ua Urobilinogen neg Ua Nitrite neg Ua Occult Blood Non Hem trace CBC With Manual 11/26/2010 [facility] White Blood 7.6 CUMM 4.8-10.[address] [place] [address] [phone] Red Cell Count 3.97 CUMM Low 4.2-5.4 Hemoglobin 13.9 g/dL 12.0-16.0 Hematocrit 39 % 35-47 Mean Corpuscular Volume 98 um3 High 79-97 Mean Corpuscular Hemoglob 35 pg High 27-31 Mean Corpuscular HGB Cone 36 g/dL 32-36 Redcell Distribution WDTH 13 % 10.5-15 Platelet Count 259 CUMM 150-450 Mean Platelet Volume 8.1 um3 7.4-10.4 Polysegmented Neutrophil 67 % 38-83 Lymphocyte 25 % 25-47 Monocyte 7 % 0-13 Eosinophil 1 % 0-6 Absolute Neutrophil Count 5.0 RBC Morphology NORMAL Laboratory test 11/26/2010 [facility] Vitamin B12 633 pg/mL 180-[address] [place] [address] [phone] Celiac Panel 11/26/2010 [facility] Endomysial Abs Negative Negative [address] [place] [address] [phone] Gliadin Igg <10.0 U () 48 Gliadin Iga <10.0 U () 49 Reticulin AB Negative Negative 50 Vitamin D 1,25 11/26/2010 [facility] Vitamin D, 1,25 40 pg/mL 18-78 51 And Vitamin D,[address] [place] [address] [phone] Vitamin D, 25 11/26/2010 [facility] 25-Hydroxy <4.0 ng/mL () Hydroxy [address] [place] [address] [phone] 25-Hydroxy Vitamin D3 20 ng/mL () 25-Hydroxy Vitamin D Total 20 ng/mL Abnormal () 52 Laboratory test 11/26/2010 [facility] TSH 2.64 0.34-5.[address] MIU/ML [place] [id number] [phone] Lipid Profile 11/01/2010 [facility] Triglyceride 210 mg/dL High 40-200 (Trig/Chol/HDL) [address] [place] [address] [phone] Cholesterol 249 mg/dL High Less Than 200 53 High Density Lipoprotein 92 mg/dL High 40-60 54 Cholesterol/HDL Ratio 2.71 AVERAGE 1-4.44 Low Density Lipoprotein 115 mg/dL High Less Than 100 55 Laboratory test finding 11/01/2010 [facility] Glucose 98 mg/dL 70-[address] [place] [address] [phone] Hemoglobin A1c 5.6 % Less Than 6.0 56 1 Because ethnic data is not always readily available, this report includes an eGFR for both -Americans and non- Americans. The National Kidney Disease Education Program (NKDEP) does not endorse the use of the MDRD equation for patients that are not between the ages of 18 and 70, are , have extremes of body size, muscle mass, or nutritional status, or are non- or non-. According to the National Kidney Foundation, irrespective of diagnosis, the stage of the disease is based on the level of kidney function: Stage Description GFR(mL/min/1.73 m(2)) 1 Kidney damage with normal or decreased GFR 90 2 Kidney damage with mild decrease in GFR 60-89 3 Moderate decrease in GFR 30-59 4 Severe decrease in GFR 15-29 5 Kidney failure <15 (or dialysis) 2 SEE RESULT BELOW Name: DARIUS VIGIL : [address]: Ayse Mills NP Acct: [id number] Unit: [id number] AGE: 62 Location: [facility] Re05/26/18 SEX: F Status: REG REF SPEC: [id number] HUONG: 05/26/[address]: Ayse Mills NP REQ: [id number] RECD: 05/26/18 STATUS: COMP _ SOURCE: URINE SPDESC: ORDERED: Urine Culture Procedure Result Reported Site Urine Culture Final 05/28/18- 926 ML No Growth (<1,000 CFU/mL) * ML - Main Lab . END OF REPORT DEPARTMENT OF PATHOLOGY, [address] [place] [address] Ramesh Torres M.D. Director [facility] # [id number] 3 Normal Range 180 to 914 Indeterminate Range 145 to 180 Deficient Range <145 4 Desirable: <150 Borderline High: 150-199 High: 200-499 Very High: >500 5 Desirable: <200 Borderline High: 200-239 High: >239 6 Low: <40 Desirable: 40-60 High: >60 7 Desirable: <100 Near Optimal: 100-129 Borderline High: 130-159 High: 160-189 Very High: >189 8 Because ethnic data is not always readily available, this report includes an eGFR for both -Americans and non- Americans. The National Kidney Disease Education Program (NKDEP) does not endorse the use of the MDRD equation for patients that are not between the ages of 18 and 70, are , have extremes of body size, muscle mass, or nutritional status, or are non- or non-. According to the National Kidney Foundation, irrespective of diagnosis, the stage of the disease is based on the level of kidney function: Stage Description GFR(mL/min/1.73 m(2)) 1 Kidney damage with normal or decreased GFR 90 2 Kidney damage with mild decrease in GFR 60-89 3 Moderate decrease in GFR 30-59 4 Severe decrease in GFR 15-29 5 Kidney failure <15 (or dialysis) 9 [id number] SEE RESULT BELOW Name: DARIUS VIGIL : [address]: Israel Funes MD Acct: [id number] Unit: [id number] AGE: 61 Location: [facility] Re12/04/16 SEX: F Status: DEP [facility] SPEC: [id number] HUONG: 12/04/[address] [facility] [address]: Israel Funes MD REQ: [id number] RECD: 12/04/166 STATUS: SOUT _ ORDERED: Decal/2, LEVEL 3/2 COMMENTS: [id number] FINAL DIAGNOSIS 1. Bone, trapezoid, left, resection: -- Severe degenerative osteoarthritic changes. 2. Bone, left, trapezium, excision: -- Severe degenerative osteoarthritic changes. 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 GROSS DESCRIPTION 1. The specimen is received in formalin labeled, Partial Trapezoid Left, and consists of a 1.8 x 1.1 x 0.3 cm aggregate of glaser-white irregular bone fragments. [employer] Officer sections, one cassette following decalcification. 2. The specimen is received in formalin labeled, Left Trapezium, and consists of a 3.4 x 2.4 x 1.3 cm aggregate of glaser-white irregular bone fragments. [employer]othes [employer] Officer sections, one cassette following decalcification. MICROSCOPIC DESCRIPTION Signed (signature on file) Ramesh Torres MD 1312 END OF REPORT * ML=Testing performed at Main Lab DEPARTMENT OF PATHOLOGY, [address] [place] [address] Ramesh Torres M.D. Director [facility] # [id number] 11 FASTING 12 Desirable <150 Borderline high 150-199 High 200-499 Very High >500 13 Desirable <200 Borderline high 200-239 High >239 14 Low <40 Desirable: 40-60 High: >60 15 Desirable: <100 mg/dL Near Optimal: 100-129 mg/dL Borderline High: 130-159 mg/dL High: 160-189 mg/dL Very High: >189 mg/dL 16 Because ethnic data is not always readily available, this report includes an eGFR for both -Americans and non- Americans. The National Kidney Disease Education Program (NKDEP) does not endorse the use of the MDRD equation for patients that are not between the ages of 18 and 70, are , have extremes of body size, muscle mass, or nutritional status, or are non- or non-. According to the National Kidney Foundation, irrespective of diagnosis, the stage of the disease is based on the level of kidney function: Stage Description GFR(mL/min/1.73 m(2)) 1 Kidney damage with normal or decreased GFR 90 2 Kidney damage with mild decrease in GFR 60-89 3 Moderate decrease in GFR 30-59 4 Severe decrease in GFR 15-29 5 Kidney failure <15 (or dialysis) 17 Normal Range 180 to 914 Indeterminate Range 145 to 180 Deficient Range <145 18 Because ethnic data is not always readily available, this report includes an eGFR for both -Americans and non- Americans. The National Kidney Disease Education Program (NKDEP) does not endorse the use of the MDRD equation for patients that are not between the ages of 18 and 70, are , have extremes of body size, muscle mass, or nutritional status, or are non- or non-. According to the National Kidney Foundation, irrespective of diagnosis, the stage of the disease is based on the level of kidney function: Stage Description GFR(mL/min/1.73 m(2)) 1 Kidney damage with normal or decreased GFR 90 2 Kidney damage with mild decrease in GFR 60-89 3 Moderate decrease in GFR 30-59 4 Severe decrease in GFR 15-29 5 Kidney failure <15 (or dialysis) 19 Because ethnic data is not always readily available, this report includes an eGFR for both -Americans and non- Americans. The National Kidney Disease Education Program (NKDEP) does not endorse the use of the MDRD equation for patients that are not between the ages of 18 and 70, are , have extremes of body size, muscle mass, or nutritional status, or are non- or non-. According to the National Kidney Foundation, irrespective of diagnosis, the stage of the disease is based on the level of kidney function: Stage Description GFR(mL/min/1.73 m(2)) 1 Kidney damage with normal or decreased GFR 90 2 Kidney damage with mild decrease in GFR 60-89 3 Moderate decrease in GFR 30-59 4 Severe decrease in GFR 15-29 5 Kidney failure <15 (or dialysis) 20 SEE RESULT BELOW Name: DARIUS VIGIL : [address]: Ayse Mills NP Acct: [id number] Unit: [id number] AGE: 59 Location: [facility] Re02/28/15 SEX: F Status: REG REF SPEC: [id number] HUONG: 02/28/15-[address] [facility] [address]: Ayse Mills NP REQ: [id number] RECD: 02/28/15 STATUS: SOUT _ ORDERED: IMAGE ANALYSIS, HPV/Thin Prep, HPV 16/18 GENE FINAL DIAGNOSIS Negative for Intraepithelial lesion or Malignancy A. Ectocervical/Endocervical Specimen Adequacy: Satisfactory of evaluation Transformation zone component cannot be definitely identified due to presence of atrophy or other hormonal changes Patient Information: HPV: High risk HPV RNA testing regardless of pap results. HPV 16/18 Genotype for HPV pos Actual Specimen Date: 02/28/15 Spec Date if unknown: 2011 ?: N Post Menopausal?: Y Hysterectomy?: N Previous Abnormal Pap Smears?:N Date Time Test Result Flag (u) Normal Range 02/28/151135 HPV RNA RFLX GE Negative Negative The high-risk HPV types detected by the assay include: 16, 18, 31, 33, 35, 39, 45, 51, 52, 56, 58, 59, 66, and 68. Signed (signature on file) JOSE Huerta(ASCP) 03/01 1515 This Pap test was evaluated with the assistance of the [employer] Test Imaging System. Due to cytologic findings at the tipple mechanic microscope, comprehensive manual rescreening by a Continuous Process Tanner Rotary Drum may be required. The Pap Smear is a screening test designed to aid in the detection of premalignant and malignant conditions of the uterine cervix. It is not a diagnostic procedure and should not be used as the sole means of detecting cervical cancer. Both false- positive and false- negative reports do occur. Depending on your risk status, a Pap smear should be obtained and evaluated every 1-3 years. END OF REPORT * ML=Testing performed at Main Lab DEPARTMENT OF PATHOLOGY, [address] [place] [address] Ramesh Torres M.D. Director [facility] # [id number] RUN DATE: 03/01/15 [facility] LAB LIVE PAGE 1 Patient: DARIUS VIGIL [id number] (Continued) 21 The high-risk HPV types detected by the assay include: 16, 18, 31, 33, 35, 39, 45, 51, 52, 56, 58, 59, 66, and 68. 22 Desirable <150 Borderline high 150-199 High 200-499 Very High >500 23 Desirable <200 Borderline high 200-239 High >239 24 Low <40 Desirable: 40-60 High: >60 25 Desirable: <100 mg/dL Near Optimal: 100-129 mg/dL Borderline High: 130-159 mg/dL High: 160-189 mg/dL Very High: >189 mg/dL 26 Because ethnic data is not always readily available, this report includes an eGFR for both -Americans and non- Americans. The National Kidney Disease Education Program (NKDEP) does not endorse the use of the MDRD equation for patients that are not between the ages of 18 and 70, are , have extremes of body size, muscle mass, or nutritional status, or are non- or non-. According to the National Kidney Foundation, irrespective of diagnosis, the stage of the disease is based on the level of kidney function: Stage Description GFR(mL/min/1.73 m(2)) 1 Kidney damage with normal or decreased GFR 90 2 Kidney damage with mild decrease in GFR 60-89 3 Moderate decrease in GFR 30-59 4 Severe decrease in GFR 15-29 5 Kidney failure <15 (or dialysis) 27 Normal Range 180 to 914 Indeterminate Range 145 to 180 Deficient Range <145 28 Desirable <150 Borderline high 150-199 High 200-499 Very High >500 29 Desirable <200 Borderline high 200-239 High >239 30 Low <40 Desirable: 40-60 High: >60 31 Desirable <100 Near Optimal 100-129 Borderline high 130-159 High 160-189 Very High >189 32 Normal Range 180 to 914 Indeterminate Range 145 to 180 Deficient Range <145 33 Because ethnic data is not always readily available, this report includes an eGFR for both -Americans and non- Americans. The National Kidney Disease Education Program (NKDEP) does not endorse the use of the MDRD equation for patients that are not between the ages of 18 and 70, are , have extremes of body size, muscle mass, or nutritional status, or are non- or non-. According to the National Kidney Foundation, irrespective of diagnosis, the stage of the disease is based on the level of kidney function: Stage Description GFR(mL/min/1.73 m(2)) 1 Kidney damage with normal or decreased GFR 90 2 Kidney damage with mild decrease in GFR 60-89 3 Moderate decrease in GFR 30-59 4 Severe decrease in GFR 15-29 5 Kidney failure <15 (or dialysis) 34 Fasting 35 Because ethnic data is not always readily available, this report includes an eGFR for both -Americans and non- Americans. The National Kidney Disease Education Program (NKDEP) does not endorse the use of the MDRD equation for patients that are not between the ages of 18 and 70, are , have extremes of body size, muscle mass, or nutritional status, or are non- or non-. According to the National Kidney Foundation, irrespective of diagnosis, the stage of the disease is based on the level of kidney function: Stage Description GFR(mL/min/1.73 m(2)) 1 Kidney damage with normal or decreased GFR 90 2 Kidney damage with mild decrease in GFR 60-89 3 Moderate decrease in GFR 30-59 4 Severe decrease in GFR 15-29 5 Kidney failure <15 (or dialysis) 36 HDL Interpretation: Undesirable: High Risk: Less than 40 mg/dL Desirable: Low Risk: Greater than 60 mg/dL 37 LDL Interpretation: Low Risk Optimal Level: LDL Less than 100 mg/dL Near or Above Optimal: LDL 100-129 mg/dL Borderline High Risk: LDL 130-159 mg/dL High Risk: LDL 160-189 mg/dL Very High Risk: LDL Greater than 189 mg/dL 38 Fasting 39 RUN DATE: 01/23/12 [facility] LAB LIVE PAGE 1 RUN TIME: 75[address] [place], [place] [address] Specimen Inquiry Name: DARIUS VIGIL : [address]: Linh DUMONT Anila Acct: [id number] Unit: [id number] AGE: 56 Location: [facility] Re01/21/12 SEX: F Status: REG REF SPEC: [id number] HUONG: 01/21/12-[address]: Anila Melton MD REQ: [id number] RECD: 01/22/12124 STATUS: SOUT _ ORDERED: LEVEL IV FINAL DIAGNOSIS Skin, right thigh, punch biopsy: A. Lentiginous compound melanocytic nevus with mild architectural disorder and no cytologic atypia. B. The lesion appears excised. CLINICAL HISTORY No history given. GROSS DESCRIPTION The specimen is received in formalin labelled Darius Vigil and consists of a punch biopsy measuring 0.4 x 0.4 x 0.4 cm. The specimen is bisected and submitted entirely , one cassette. Signed (signature on file) Ramesh Torres MD 1330 END OF REPORT * ML=Testing performed at Main Lab DEPARTMENT OF PATHOLOGY, [address] [place] [address] Ramesh Torres M.D. Director [facility] Permit #[id number] 40 HDL Interpretation: Undesirable: High Risk: Less than 40 MG/DL Desirable: Low Risk: Greater than 60 MG/DL 41 LDL Interpretation: Low Risk Optimal Level: LDL Less than 100 MG/DL Near or Above Optimal: LDL 100-129 MG/DL Borderline High Risk: LDL 130-159 MG/DL High Risk: LDL 160-189 MG/DL Very High Risk: LDL Greater than 189 MG/DL 42 Because ethnic data is not always readily available, this report includes an eGFR for both -Americans and non- Americans. The National Kidney Disease Education Program (NKDEP) does not endorse the use of the MDRD equation for patients that are not between the ages of 18 and 70, are , have extremes of body size, muscle mass, or nutritional status, or are non- or non-. According to the National Kidney Foundation, irrespective of diagnosis, the stage of the disease is based on the level of kidney function: Stage Description GFR(mL/min/1.73 m(2)) 1 Kidney damage with normal or decreased GFR 90 2 Kidney damage with mild decrease in GFR 60-89 3 Moderate decrease in GFR 30-59 4 Severe decrease in GFR 15-29 5 Kidney failure <15 (or dialysis) 43 Fasting 44 Fasting 45 Fasting 46 RUN DATE: 01/06/12 [facility] LAB LIVE PAGE 1 RUN TIME: 12[address] [place], [place] [address] Specimen Inquiry Name: DARIUS VIGIL : [address]: Anila Melton MD Acct: [id number] Unit: [id number] AGE: 56 Location: [facility] Re01/05/12 SEX: F Status: REG REF SPEC: [id number] HUONG: 01/05/12-[address] [facility] [address]: Linh DUMONTAnila REQ: [id number] RECD: 01/06/12 STATUS: SOUT _ ORDERED: IMAGE ANALYSIS Negative for Intraepithelial lesion or Malignancy A. Ectocervical/Endocervical Specimen Adequacy: Satisfactory of evaluation Transformation zone component cannot be definitely identified due to presence of atrophy or other hormonal changes Patient Information: HPV: Thin Layer Pap Test w/reflex to high risk HPV DNA testing when ASCUS Actual Specimen Date: 01/05/12 LMP If Unknown: age 48 Cautery: N IUD: N ?: N Post Menopausal?: Y Hysterectomy?: N Lesion, grossly demonstrate: N Previous Abnormal Pap Smears?:N Signed (signature on file) JOSE Douglas (ASCP) 01/05 1232 This Pap test was evaluated with the assistance of the [employer] Test Imaging System. Due to cytologic findings at the tipple mechanic microscope, comprehensive manual rescreening by a Continuous Process Tanner Rotary Drum may be required. The Pap Smear is a screening test designed to aid in the detection of premalignant and malignant conditions of the uterine cervix. It is not a diagnostic procedure and should not be used as the sole means of detecting cervical cancer. Both false- positive and false- negative reports do occur. Depending on your risk status, a Pap smear shoudl be obtained and evaluated every 1-3 years. END OF REPORT * ML=Testing performed at Main Lab DEPARTMENT OF PATHOLOGY, [address] [place] [address] Ramseh Torres M.D. Director [facility] Permit #[id number] Analyte Specific Reagent This test was developed and its performance characteristics determined by Laboratory Medicine and Pathology, [facility]. It has not been cleared or approved by the U.S. Food and Drug Administration. Test Performed by: [facility] Dpt of Lab Med and Pathology [address] [place] [address] Emergency Medicine Medical Director: Yunior Herrera III, M.D. 48 -- REFERENCE VALUE -- <20.0 (Negative) Test Performed by: [facility] Dpt of Lab Med and Pathology [address] [place] [address] Emergency Medicine Medical Director: Yunior Herrera III, M.D. 49 -- REFERENCE VALUE -- <20.0 (Negative) Test Performed by: [facility] Dpt of Lab Med and Pathology [address] [place] [address] Emergency Medicine Medical Director: Yunior Herrera III, M.D. 50 Test Performed by: [facility] Dpt of Lab Med and Pathology [address] [place] [address] Emergency Medicine Medical Director: Yunior Herrera III, M.D. 51 Test Performed by: [facility] Dpt of Lab Med and Pathology [address] [place] [address] Emergency Medicine Medical Director: Yunior Herrera III, M.D. 52 Interpretation: 10-24 (mild to moderate deficiency) -- REFERENCE VALUE -- 25-HYDROXY D TOTAL (D2+D3) Optimum levels in the normal population are 25-80 Test Performed by: [facility] Dpt of Lab Med and Pathology [address] [place] [address] Emergency Medicine Medical Director: Yunior Herrera III, M.D. 53 CHOLESTEROL INTERPRETATION: Desirable: Less than 200 MG/DL Borderline-High Risk: 200-239 MG/DL High-Risk: 240 MG/DL and over 54 HDL INTERPRETATION: Undesirable: High Risk: Less than 40 MG/DL Desirable: Low Risk: Greater than 60 MG/DL 55 LDL INTERPRETATION: Low Risk Optimal Level: LDL Less than 100 MG/DL Near or Above Optimal: LDL 100-129 MG/DL Borderline High Risk: LDL 130-159 MG/DL High Risk: LDL 160-189 MG/DL Very High Risk: LDL Greater than 189 MG/DL 56 THERAPEUTIC TARGET FOR THE TREATMENT OF DIABETES MELLITUS PATIENTS IS <7% HBA1C, AND IN SELECTIVE PATIENTS <6.0%. PLEASE REFER TO [place] [employer] [employer] DIABETIC CARE GUIDELINES FOR FURTHER INFORMATION. Procedures Date Code Description Status 05/26/2018 29160 EKG Tracing & Interpretation Completed 02/17/201820899 Inject/Drain Joint/Bursa Major W/O US Completed 02/01/201812704 Inject/Drain Joint/Bursa Major W/O US Completed 01/25/201865736 Inject/Drain Joint/Bursa Major W/O US Completed 01/18/201845161 Inject/Drain Joint/Bursa Major W/O US Completed 01/01/201884755 Inject/Drain Joint/Bursa Major W/O US Completed 12/11/201755795 Inject/Drain Joint/Bursa Major W/O US Completed 11/19/2017 [id number] Mammogram Completed 03/31/2017 [id number] Colonoscopy Completed 12/16/2016 35159 Short Arm Splint Application Completed 12/04/2016 35665 Capsulodesis Metacarpophalangeal Joint, Single Digit Completed 12/04/2016 21499 Capsulodesis Metacarpophalangeal Joint, Single Digit Completed 12/04/2016 20783 Arthroplasty Interposition Intercarpal Or Completed Carpometacarpal JTS 12/04/2016 06515 Arthroplasty Interposition Intercarpal Or Completed Carpometacarpal JTS 11/12/2016 [id number] Mammogram Completed 10/10/2015 65871 EKG Tracing & Interpretation Completed 07/04/2015 [id number] Mammogram Completed 03/02/2014 [id number] Mammogram Completed 05/17/2013 68600 Admin Of Inj Completed 03/01/2013 [id number] Mammogram Completed 02/01/2013 68007 EKG Tracing & Interpretation Completed 02/23/2012 [id number] Colonoscopy Completed 01/21/2012 90009 Excise Benign Lesion including margins <.6CM Completed Trunk/Arm/Leg 01/07/2012 [id number] Mammogram Completed 01/05/2012 78922 EKG Tracing & Interpretation Completed 11/26/2010 [id number] Mammogram Completed 11/26/2010 [id number] Bone Mineral Density Test Completed 11/06/2010 28406 EKG Tracing & Interpretation Completed 02/26/2010 10104 Stress Test Supervsn W/Out I/R Completed 02/26/2010 24413 Treadmill Interp/Report Only Completed 11/07/2009 [id number] Mammogram Completed 10/24/2009 38184 EKG Tracing & Interpretation Completed 09/02/2007 79129 EKG Tracing & Interpretation Completed 10/26/2006 [id number] Colonoscopy Completed 09/02/2006 [id number] Bone Mineral Density Test Completed 08/27/2006 59877 EKG Tracing & Interpretation Completed 08/27/2006 84544 EKG Tracing & Interpretation Completed Encounters Type Date Location Provider Dx Diagnosis Office Visit 05/07/2018 [facility] Lynnette Ibrahim, M25.562 Pain in left knee 9:15a [facility]en[facility]. Dwayne. M25.561 Pain in right knee M25.462 Effusion, left knee M25.461 Effusion, right knee M17.0 Bilateral primary osteoarthritis of knee Office Visit 04/30/2018 3:20p [facility] [place], F32.9 Major depressive Medicine - N.P. disorder, single [place] episode, unspecified M25.562 Pain in left knee Office Visit 04/16/2018 [facility] [place], I10 Essential 4:00p Medicine - N.P. (primary) [place] hypertension Office Visit 01/01/2018 Orthopedic Lynnette Ibrahim, M25.561 Pain in right knee 3:15p Services Of Omid C.M.ACarlos M25.562 Pain in left knee M25.461 Effusion, right knee M25.462 Effusion, left knee M17.0 Bilateral primary osteoarthritis of knee Office Visit 12/11/2017 11:00a [facility] Lynnette Ibrahim, M25.561 Pain in right Of C.M.A. M.D. knee M25.562 Pain in left knee M25.461 Effusion, right knee M25.462 Effusion, left knee M17.0 Bilateral primary osteoarthritis of knee Office Visit 10/21/2017 3:00p [facility] [place], Z00.00 Encntr for Medicine N.P. general adult medical exam w/o abnormal findings Z12.31 Encntr screen mammogram for malignant neoplasm of breast E78.00 Pure hypercholesterolemia, unspecified I10 Essential (primary) hypertension G43.909 Migraine, unsp, not intractable, without status migrainosus D51.9 Vitamin B12 deficiency anemia, unspecified K21.9 Gastro-esophageal reflux disease without esophagitis M25.569 Pain in unspecified knee M79.641 Pain in right hand M25.561 Pain in right knee M25.562 Pain in left knee Office Visit 03/17/2017 [facility] M18.12 Unil primary 3:30p Services Of MD Shantel osteoarth of first C.M.A. carpometacarp joint, l hand Office Visit 10/29/2016 [facility] [place] M18.0 Bilateral primary 1:00p Services Of MD Shantel osteoarth of first C.M.A. carpometacarp joints Office Visit 10/16/2016 [facility] [place], Z00.01 Encounter for 10:00a Medicine N.P. general adult medical exam w abnormal findings Z12.31 Encntr screen mammogram for malignant neoplasm of breast I10 Essential (primary) hypertension E78.00 Pure hypercholesterolemia, unspecified K21.9 Gastro-esophageal reflux disease without esophagitis D51.9 Vitamin B12 deficiency anemia, unspecified M25.541 Pain in joints of right hand M25.542 Pain in joints of left hand G43.909 Migraine, unsp, not intractable, without status migrainosus Office Visit 04/11/2016 8:40a [facility] [place], I10 Essential ( primary) Medicine N.P. hypertension Office Visit 10/10/2015 11:00a [facility] Pelon Tejada NP Z01.818 Encounter for other Medicine preprocedural examination M77.42 Metatarsalgia, left foot I10 Essential (primary) hypertension K21.9 Gastro-esophageal reflux disease without esophagitis Office Visit 02/28/2015 [facility] Ayse E78.0 Pure hypercholesterolemia 9:20a Medicine Varn, N.P. Z12.39 Encounter for oth screening for malignant neoplasm of breast I10 Essential (primary) hypertension K21.9 Gastro-esophageal reflux disease without esophagitis D51.8 Other vitamin B12 deficiency anemias Z01.419 Encntr for truss driver helper exam (general) (routine) w/o abn findings H81.13 Benign paroxysmal vertigo, bilateral Office Visit 08/22/2014 8:40a [facility] [place], 401.1 Hypertension Benign Medicine N.P. 311 Depressive Disorder Not Elsewhere Spec 309.0 Adjustment Disorder With Depression Office Visit 02/21/2014 9:00a [facility] [place], V70.0 Examination Medicine N.P. General Medical Routine AT Health Care Facility V76.10 Screening For Malignant Neoplasm Breast 401.1 Hypertension Benign 272.4 Hyperlipidemia Other Unspec 530.81 Esophageal Reflux 281.1 Vitamin B12 Deficiency Anemia Other 110.1 Dermatophytosis Nail 782.1 Rash & Other Nonspec Skin Eruption 782.9 Skin & Integumentary Tissue Other Symptoms Office Visit 02/01/2013 2:20p [facility] Anilawang Melton, V70.0 Examination Medicine M.D., FACP General Medical Routine AT Health Care Facility V76.10 Screening For Malignant Neoplasm Breast 401.1 Hypertension Benign 272.2 Hyperlipidemia Mixed 281.1 Vitamin B12 Deficiency Anemia Other 477.9 Rhinitis Allergic Cause Unspec Office Visit 01/21/2012 [facility] Anila Melton, 272.0 Hypercholesterolemia Pure 4:00p Medicine M.D., FACP 238.2 Neoplasm Uncertain Skin 239.2 Neoplasm Unspecified Bone & Soft Tissue Office Visit 01/05/2012 10:40a [facility] Anila Melton, V70.0 Examination Medicine M.D., FACP General Medical Routine AT Health Care Facility V72.31 Routine Country Manager Examination V76.10 Screening For Malignant Neoplasm Breast 401.1 Hypertension Benign 272.2 Hyperlipidemia Mixed 281.1 Vitamin B12 Deficiency Anemia Other 477.9 Rhinitis Allergic Cause Unspec 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 Effluvium 709.8 Skin Disorders Other Spec Office Visit 12/05/2010 3:40p DO Not Use Anila Linh, 281.1 Vitamin B12 [facility] Deficiency Anemia Other 733.90 Bone & Cartilage Disorder Unspec Office Visit 11/06/2010 1:00p DO Not Use Anila Linh, V70.0 [facility] FACP General Medical Routine AT Health Care Facility 272.2 Hyperlipidemia Mixed 401.1 Hypertension Benign 790.21 Impaired Fasting Glucose 281.1 Vitamin B12 Deficiency Anemia Other 627.9 Menopausal & Postmenopausal Disorder Unspec V04.81 Need For Prophylactic Vaccination & Inoculation/Influenza Office Visit 07/23/2010 DO Not Use Ayse 719.47 Pain Joint Ankle & 4:00p Rug Measurer-[place] Varn, N.P. Foot Office Visit 06/06/2010 DO Not Use Anila Linh, 272.2 Hyperlipidemia 4:00p Juana Anne, FACP Mixed Office Visit 04/24/2010 DO Not Use Anila Linh, 272.2 Hyperlipidemia 3:45p Juana Anne, FACP Mixed Office Visit 02/26/2010 [facility] Spike Boyer 786.50 Pain Chest Unspec 11:00a [place] 272.0 Hypercholesterolemia Pure 401.1 Hypertension Benign Office 02/20/2010 DO Not Use Anila 786.50 Pain Chest Unspec Visit 2:30p Juana Melton M.D., FACP Office 12/06/2009 DO Not Use Anila 272.1 Hypertriglyceridemia Visit 9:15a Eren Wilks M.D., FACP V04.81 Need For Prophylactic Vaccination & Inoculation/Influenza Office Visit 10/24/2009 DO Not Use Anila Linh, V72.31 Routine Country Manager 2:00p Juana Anne, FACP Examination Office Visit 02/22/2009 DO Not Use Anila Linh, 782.0 Skin Sensation 11:15a Juana Anne, FACP Disturbance Office Visit 02/13/2009 DO Not Use Anila Linh, 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 Paronychia Finger Office Visit 03/23/2008 DO Not Use Ayse 681.02 Onychia & 8:30a Rug Measurer-Timi [place], N.P. Paronychia Finger Office Visit 01/26/2008 DO Not Use Anila Linh, 681.02 Onychia & 2:00p Juana Anne, FACP Paronychia Finger Office Visit 10/29/2007 DO Not Use Anila Linh, 272.4 Hyperlipidemia 3:30p Juana Anne, FACP Other Unspec 627.2 Menopausal Or Female Climacteric State, Symptomatic 401.1 Hypertension Benign Office Visit 09/02/2007 9:15a DO Not Use Anilawang Melton V72.31 Routine Country Manager Juana Anne, FACP Examination 285.9 Anemia Unspec 379.93 Redness Or Discharge Of Eye 401.1 Hypertension Benign V06.1 Hepqdooiss-Mndkwuc-Fthxdfhm Combined (DTaP) Office 06/25/2007 DO Not Use Anila 720.2 Sacroiliitis Not Visit 3:45p Juana Melton M.D., Elsewhere Classified FACP Office 05/06/2007 DO Not Use Anila 272.0 Hypercholesterolemia Visit 9:00a Juana Melton M.D., Pure FACP Office 03/04/2007 DO Not Use Anila 272.0 Hypercholesterolemia Visit 2:45p Juana Melton M.D., Pure FACP 401.1 Hypertension Benign Office 12/31/2006 DO Not Use Diana, 723.1 Cervicalgia Visit 1:15p Juana Saini M.D. Office 09/28/2006 DO Not Use Anila Linh, 272.0 Hypercholesterolemia Visit 9:00a Juana Anne, FACP Pure Office 09/15/2006 DO Not Use Ayse 110.1 Dermatophytosis Nail Visit 3:45p Juana Mills, N.P. 627.2 Menopausal Or Female Climacteric State, Symptomatic Office Visit 08/27/2006 9:15a DO Not Use Anilawang Melton, V72.31 Routine Country Manager Juana Anne, FACP Examination 401.1 Hypertension Benign Plan of Treatment Future Appointment(s):06/10/2018 12:00 pm - Jorge Bear PA-C at [facility]06/10/2018 12:00 pm - MIKE Lorenzana at [facility].06/10/2018 12:00 pm - Lynnette Ibrahim M.D. at [facility]10/26/2018 9:20 am - [place]se Mills NToña at [facility] Kfhzgilg86/15/2019 - Lynnette Ibrahim M.D.M25.561 Pain in right kneeFollow up: Follow up: 2 weeks after fudsbaiQ48.461 Effusion, right kneeM17.0 Bilateral primary osteoarthritis of knee
[2018-06-10] MEDS ORDERED: Gabapentin CAP(*) 300 MG ONE (08:37)
[2018-06-10] MEDS ORDERED: celeCOXIB CAP* 100 MG ONE (08:37)
[2018-06-10] MEDS ORDERED: Acetaminophen TAB* 325 MG ONE (08:37)
[2018-06-10] MEDS ORDERED: ceFAZolin 2 GM PREMIX in ORs 2 GM/50 ML BAG IVPB ONE (08:38)
[2018-06-10] MEDS ORDERED: Famotidine IV* 10 MG/ML 2 ML (20 mg) ONE (08:38)
[2018-06-10] MEDS ORDERED: ROPIVACAINE 5 MG/ML 30 ML BTL (0.5%) ONE ×2 (09:58→10:20)
[2018-06-10] MEDS ORDERED: fentaNYL* 50 MCG/ML 2 ML VIAL (100 MCG VIAL) ONE (09:58)
[2018-06-10] MEDS ORDERED: Midazolam* 1 MG/ML 10 ML VIAL (10 MG) ONE (09:58)
[2018-06-10] MEDS ORDERED: Lidocaine 2% PF * 5 ML VIAL ONE (09:58)
[2018-06-10] MEDS ORDERED: KETAMINE HCL* 50 MG/ML 10 ML VIAL ONE (09:58)
[2018-06-10] MEDS ORDERED: Dexamethasone IV* 4 MG/ML 1 ML (4 MG) ONE (09:58)
[2018-06-10] MEDS ORDERED: Ondansetron INJ* 2 MG/ML VIAL ONE (09:58)
[2018-06-10] MEDS ORDERED: Propofol* 10 MG/ML 20 ML BTL ONE ×2 (09:58→13:40)
[2018-06-10] MEDS ORDERED: fentaNYL* 50 MCG/ML 5 ML VIAL (250 MCG VIAL) ONE (11:34)
[2018-06-10] MEDS ORDERED: HYDROmorphone INJ1* 1 MG/ML SYRINGE IV PRN (12:45)
[2018-06-10] MEDS ORDERED: fentaNYL* 50 MCG/ML 2 ML VIAL (100 MCG VIAL) IV PRN (12:45)
[2018-06-10] MEDS ORDERED: DiMENhydriNATE IV* 50 MG/ML VIAL IV PUSH PRN (12:45)
[2018-06-10] MEDS ORDERED: Naloxone* 0.4 MG/ML 1 ML VIAL IV PRN (12:45)
[2018-06-10] MEDS ORDERED: diPHENhydraMINE IV* 50 MG/ML 1 ml VIAL (BENADRYL) IV PRN (13:31)
[2018-06-10] MEDS ORDERED: Bisacodyl SUPP* 10 MG SUPP PR PRN (13:31)
[2018-06-10] MEDS ORDERED: Cyclobenzaprine TAB* 10 MG PO PRN (13:31)
[2018-06-10] MEDS ORDERED: oxyCODONE TAB* 5 MG TAB PO PRN (13:31)
[2018-06-10] MEDS ORDERED: Morphine INJ* 2 MG/ML 1 ML SYRINGE (TWO MG - NEW SYRINGE VERSION) IV PRN (13:31)
[2018-06-10] MEDS ORDERED: Magnesium Hydroxide LIQ* 30 ML UDC PO PRN (13:31)
[2018-06-10] MEDS ORDERED: Polyethylene Glycol 3350* 17 GM PACKET PO PRN (13:31)
[2018-06-10] MEDS ORDERED: Ondansetron TAB* 4 MG PO PRN (13:31)
[2018-06-10] MEDS ORDERED: oxyCODONE/Acetamin 5/325 MG* TAB PO PRN (13:31)
[2018-06-10] MEDS ORDERED: EPHEDrine (Pressors)* 50 MG/ML VIAL ONE (13:40)
--- NOTE | 2018-06-10 14:33 | PN ---
Progress Note - Progress Note Date of Service: 06/10/18 Note: resting comfortably in recovery; able to dorsi flex/plantar flex, 2+ DP pulse and intact sensation, dressing c/d/i
[2018-06-10] MEDS: Lactated Ringers 1000 ML Bag* 1,000 ML IV SCH (15:16)
[2018-06-10] MEDS: Acetaminophen TAB* 325 MG PO SCH (16:04)
--- NOTE | 2018-06-10 17:58 | OP ---
Operative Report - Blank - Operative Report Date of Operation: 06/10/18 Note: DARIUS VIGIL 1955 Date of Surgery: 06/10/18 Lynnette Ibrahim MD Director Channel: Linette MCKEON did help throughout the procedure with preparation of the knee, wound retraction, manipulation of the knee, and wound closure. Anesthesiologist: Matt Cerda MD Anesthesia Type: General Preoperative Diagnosis: Right severe degenerative osteoarthritis of the knee Postoperative Diagnosis: As above Procedure Performed: Right Total Knee Arthroplasty Tourniquet time: 41 minutes Complications: None Specimen: Bone and cartilage from the right knee joint sent to pathology. Hardware Used: Cemented Roth and Nephew total knee hardware was used - For the femur a size 5 narrow right oxinium legion posterior stabilized femoral component, for the tibia a size 3 right xiomy II tibial baseplate, for the insert a size 9mm 3-4 posterior stabilized articular polyethylene insert, and for the patella a size 29 3-peg all poly patella. Brief History/Indication: DARIUS VIGIL was known in clinic and had a history of severe right knee pain and swelling. She failed conservative treatment with anti-inflammatories, pain pills, intra-articular injections and physical therapy. She elected to undergo right total knee arthroplasty due to continued pain and decreased quality of life. Radiographs showed severe end stage osteoarthritis of the knee with bone on bone contact. Informed consent was obtained from the patient. She understood the risks of surgery included but were not limited to: bleeding, infection, damage to nearby structures, intraoperative fracture, nerve palsy, failure of the hardware, early loosening, knee stiffness or loss of motion, anesthesia complications, stroke, heart attack , blood clot and . She wished to proceed. Intra-Operative Findings: Intraoperatively the patient was noted to have severe loss of cartilage in all 3 compartments of the knee. Description of the Procedure: DARIUS VIGIL was identified in the preanesthesia unit. Her right knee was marked as the correct operative side. Informed consent was signed and placed in the chart. The patient was taken to the operating room and placed under anesthesia without complication. A perera catheter was placed. A tourniquet was placed on the right thigh. The right lower extremity was prepped and draped in the usual sterile fashion. Preoperative time-out was made to correctly identify the patient, side and site. Appropriate intraoperative antibiotics were given within one hour of incision. Tourniquet was inflated. A midline incision was made and carried sharply down to the extensor mechanism. A new 10 blade was used to make a standard medial parapatellar arthrotomy. The patella was subluxed laterally. Electrocautery was used to dissect soft tissue off the superomedial tibia to the midsagittal plane. The knee was flexed up. The anterior horn of the lateral meniscus and the ACL were sharply incised. A drill was used to enter the distal femur. The intramedullary distal femoral cutting guide was pinned on the distal femur. The oscillating saw was used to make the distal femoral cut. The external rotation guide was pinned on the distal femur and the distal femur was sized to a size 5. The size 5 multi-cutting jig was pinned on the distal femur. The oscillating saw was used to make the appropriate 4 chamfer cuts. Next the PCL was completely released. The extramedullary tibial cutting guide was pinned on the proximal tibia and the oscillating saw was used to make the proximal tibial cut perpendicular to the mechanical axis of the tibia. The bone was carefully removed. The knee was brought out into full extension. The spacer block was placed and had excellent fit with the knee in full extension. The medial and lateral ligaments were well balanced. The flexion and extension gaps were well balanced. The knee was flexed up. Lamina mobile game engineer was placed both medially and laterally. Any remaining meniscus was removed with electrocautery. Curved osteotome was used to remove any posterior osteophytes. The tibial tray and drop maricruz were placed and confirmed a satisfactory tibial cut. The size 5 right narrow femoral trial was impacted onto the distal femur. This trial had excellent fit and stability. The box for the posterior stabilized implant was prepared using a box cut osteotome and a reamer. Next a tibial tray trial and 9 mm insert trial was placed. The knee was taken through a range of motion and had full extension to 130 degrees of flexion. Patellofemoral tracking was satisfactory. The patella was inverted and sized to a size 29. Three peg holes were drilled through the size 29 drill guide. The trial patella was placed and the knee was taken through a range of motion. There was satisfactory patellofemoral tracking. All trials were removed. The tibia was subluxed anteriorly and sized to a size 3. The proximal tibial was prepared with a size 3 keel punch. All bony cut surfaces were irrigated with sterile saline and dried. Final implants were cemented into place starting with the tibia, followed by the femur, and last the patella. A 9 mm insert trial was placed and the knee was brought into full extension. Tourniquet was turned down and the knee was copiously irrigated with sterile saline. Electrocautery was used to obtain meticulous hemostasis. Once the cement had fully cured, the insert trial was removed. Any excess cement was removed from around the hardware and capsule. Final insert chosen was a 9 mm posterior stabilized Xiomy II articular insert size 3-4. Stability of the insert was checked and noted to be stable. The extensor mechanism was closed using number 1 vicryls. The rest of the incision was closed in a layered fashion using 0 and 2-0 vicryls. The skin was closed using 3-0 nylon suture. Sterile xeroform, 4x4s and webril were used to cover the incision. Jani wrap and cold pack were used to cover the dressings. The patients anesthesia was reversed without difficulty. She was taken to the PACU in stable condition. Intended weight-bearing will be as tolerated.
[2018-06-10] MEDS: traMADol TAB* 50 MG PO PRN (18:07)
[2018-06-10] MEDS: ceFAZolin 1 GM ADVAN(*) 1 GM in NS 0.9% 50 ML* 50 ML IVPB SCH (19:39)
--- NOTE | 2018-06-10 20:25 | CONS ---
CONSULTATION REPORT: DATE OF CONSULT: 06/10/18 CONSULTING PROVIDER: Mejia Cochran MD. REQUESTING PHYSICIAN: Dr. Ibrahim of orthopedics.* REASON FOR CONSULT: Hypertension in the setting of elective right total knee replacement. CHIEF COMPLAINT: Right knee pain. HISTORY OF PRESENT ILLNESS: Julissa Rollins is a 62-year-old female with past medical history of hypertension, migraine headaches, hyperlipidemia, preexcitation/Ulywg-Hqgxnymun-Jwirm pattern to EKGs, and end-stage right knee osteoarthritis who is presenting for elective total right knee replacement with Dr. Ibrahim. On day of consultation, she has just worked with physical therapy, transferring from the bed to the chair, has some mild burning pain near the knee , but otherwise well controlled. She is without any other complaints. She denies any history of palpitations. She does exercise with walking. Denies any chest pain. 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 PAST SURGICAL HISTORY: , left foot bunionectomy and another surgery on the left foot as well as on the left first finger. MEDICATIONS AT HOME: Included: 1. Atenolol 50 mg p.o. q.a.m. 2. Vitamin B12 at 1000 mg IM monthly. 3. Lexapro 10 mg p.o. q.a.m. 4. Fenofibrate 54 mg p.o. q.a.m. 5. Simvastatin 10 mg p.o. q.a.m. ALLERGIES: ADHESIVE TAPE, welts, redness. FAMILY HISTORY: Father of colon cancer at age 59. Mother had a history of 2 coronary artery bypasses, but at age 83. She has a brother and sister relatively healthy. SOCIAL HISTORY: She is a former smoker, 10 to 15 total pack-years, quit at age 28. Denies drug use. Two glasses of wine daily. She is a full code. 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 Medical surrogate is , Rajesh Rollins. REVIEW OF SYSTEMS: A complete 14-point review of systems is negative, except as per HPI. PHYSICAL EXAM: General Appearance: In no acute distress, sitting in chair. Vital Signs: Temperature 98.6, heart rate 64, respiratory rate 18, satting 99% on 2 L, blood pressure 155/90. HEENT: Normocephalic, atraumatic. Pupils equally round and reactive to light. Extraocular motions are intact. No scleral icterus. Lungs: Clear to auscultation bilaterally with no wheezing, rales, or rhonchi. Cardiovascular: Regular rate and rhythm. No murmurs, rubs, or gallops. Abdomen: Soft, nontender, nondistended. No rebound, no guarding. No Turner's sign. Extremities: Warm, well perfused. No peripheral edema. Right leg in brace, thought to have ice machine applied. Sensation intact. Moving all extremities. Skin: No lesions, no rashes. DIAGNOSTIC STUDIES/LAB DATA: Labs: None. Imaging: Knee x-ray demonstrates right knee replacement in satisfactory position. ASSESSMENT AND PLAN: Julissa Rollins is a 62-year-old female with past medical history of hypertension, Zwvup-Qnanwkazf-Dvkhi on EKG; but never with any palpitations, hyperlipidemia, vitamin B12 deficiency; now status post right total knee replacement. We are consulted for management of her hypertension. I will continue her atenolol [address] Ponce's cardiac clearance exam, if patient were to develop palpitations, evidence of atrial fibrillation or rapid ventricular response, consideration would be for IV procainamide and/ or cardioversion. Follow up labs in the morning. Would recommend checking magnesium level with that in addition to the already ordered BMP. For her right knee osteoarthritis, end-stage, continue management as per orthopedics with pain control, bowel regimen, physical therapy, and DVT prophylaxis; they are using Eliquis 2.5 mg p.o. b.i.d. Thank you for this interesting consult. Please call us with any questions. [id number]/CPS #: [id number] ALEKS
[2018-06-10] MEDS: Docusate CAP* 100 MG PO SCH (21:07)
[2018-06-10] MEDS: Magnesium Hydroxide LIQ* 30 ML UDC PO SCH (21:07)
[2018-06-10] MEDS: oxyCODONE/Acetamin 5/325 MG* TAB PO PRN (23:08)
[2018-06-10] MEDS: Ondansetron INJ* 2 MG/ML VIAL IV PRN (23:08)
[2018-06-11] MEDS: Lactated Ringers 1000 ML Bag* 1,000 ML IV SCH (01:29)
[2018-06-11] MEDS: Acetaminophen TAB* 325 MG PO SCH ×3 (01:31→17:42)
[2018-06-11] MEDS: ceFAZolin 1 GM ADVAN(*) 1 GM in NS 0.9% 50 ML* 50 ML IVPB SCH ×2 (03:37→11:27)
[2018-06-11] MEDS: Ondansetron INJ* 2 MG/ML VIAL IV PRN (06:10)
[2018-06-11 06:51] LABS: Hematocrit 29 % (33-41); Hemoglobin 9.9 g/dL (12.0-16.0); Mean Platelet Volume 8.3 fL (7.4-10.4); Platelet Count 172 10^3/uL (150-450)
[2018-06-11 07:08] LABS: BUN/Creatinine Ratio 11.4 (8-20); EGFR African American 88.7 (>60); EGFR Non-African American 73.3 (>60); Magnesium 2.2 mg/dL (1.9-2.7); Potassium 4.2 mmol/L (3.5-5.0)
[2018-06-11] MEDS: Docusate CAP* 100 MG PO SCH ×2 (08:30→21:40)
[2018-06-11] MEDS: Escitalopram * 10 MG TAB PO SCH (08:30)
[2018-06-11] MEDS: Atenolol TAB* 50 MG PO SCH (08:30)
[2018-06-11] MEDS: Apixaban* 2.5 MG TAB PO SCH ×2 (08:30→21:37)
[2018-06-11] MEDS: Atorvastatin* 10 MG TAB PO SCH (08:31)
[2018-06-11] MEDS: traMADol TAB* 50 MG PO PRN ×3 (08:31→21:37)
[2018-06-11] MEDS: Magnesium Hydroxide LIQ* 30 ML UDC PO SCH ×2 (08:31→21:41)
[2018-06-11] MEDS ORDERED: Scopolamine 1.5 mg* PATCH TRANSDERM SCH (10:00)
[2018-06-11] MEDS: oxyCODONE/Acetamin 5/325 MG* TAB PO PRN (11:27)
--- NOTE | 2018-06-11 11:35 | PN ---
Progress Note - Progress Note Date of Service: 06/11/18 SOAP: Subjective: []Patient seen OOB in chair. She is feeling nauseated and was dizzy upon ambulation earlier this morning. Scopolomine patch has been ordered. She denies CP, palpitations. She complains of mild numbness anterior right tibia area. Objective: [] Vital Signs Temp 98.4 F 06/11/18 07:54 Pulse 69 06/11/18 07:54 Resp 16 06/11/18 11:27 BP 133/77 06/11/18 07:54 Pulse Ox 100 06/11/18 07:54 Intake & Output 06/10/18 06/11/18 06/11/18 18:59 06:59 18:59 Intake Total 1800 2668 Output Total 3000 Balance 1800 -332 Weight 148 lb Intake: IV Fluids 1800 980 LR 1800 980 IVPB 110 ABX - CEFAZOLIN 110 Oral 1578 Output: Urine 1200 Crews 1800 Other: # Bowel Movements 0 Laboratory Results - last 24 hr 06/11/18 06/11/18 06:28 06:28 Hgb 9.9 L Hct 29 L Plt Count 172 MPV 8.3 Sodium 139 Potassium 4.2 Chloride 106 Carbon Dioxide 27 Anion Gap 6 BUN 9 Creatinine 0.79 Est GFR ( Amer) 88.7 Est GFR (Non-Af Amer) 73.3 BUN/Creatinine Ratio 11.4 Glucose 118 H Calcium 9.0 Magnesium 2.2 Right knee dressing is dry and intact There is no significant edema RLE, has diminished sensation anterior medial tibial region calf NT and soft Full DF right ankle Assessment: []s/p Right total knee arthroplasty POD #1 Plan: []Pt unsure about going home today, Scope patch just started. Numbness may be due to post op swelling, reassured should resolve Eliquis for DVT prophylaxis Probable discharge home 06/12
[2018-06-11] MEDS: Ondansetron ODT TAB* 4 MG PO PRN (15:04)
[2018-06-12] MEDS: Acetaminophen TAB* 325 MG PO SCH ×3 (01:33→16:18)
[2018-06-12] MEDS: Ondansetron ODT TAB* 4 MG PO PRN (01:45)
[2018-06-12 06:39] LABS: Hematocrit 26 % (33-41); Hemoglobin 8.9 g/dL (12.0-16.0); Mean Platelet Volume 8.2 fL (7.4-10.4); Platelet Count 141 10^3/uL (150-450)
[2018-06-12] MEDS: Ondansetron INJ* 2 MG/ML VIAL IV PRN ×2 (07:23→14:00)
[2018-06-12] MEDS: Magnesium Hydroxide LIQ* 30 ML UDC PO SCH ×2 (08:46→20:40)
[2018-06-12] MEDS: Docusate CAP* 100 MG PO SCH ×2 (08:47→20:39)
[2018-06-12] MEDS: Escitalopram * 10 MG TAB PO SCH (08:47)
[2018-06-12] MEDS: Atenolol TAB* 50 MG PO SCH (08:48)
[2018-06-12] MEDS: Atorvastatin* 10 MG TAB PO SCH (08:48)
[2018-06-12] MEDS: Apixaban* 2.5 MG TAB PO SCH ×2 (08:48→20:36)
--- NOTE | 2018-06-12 09:43 | PN ---
Progress Note - Progress Note Date of Service: 06/12/18 SOAP: Subjective: [Pt reports some nausea still and slight dizziness upon rising. Thinks scopolamine patch is helping Feels best lying down. Denies CP, SOB. ] Objective: [A and O x 3, NAD Resting in bed - appears comfortable. R knee dressing changed - surgical incision benign Calf soft, NT, gross motor and NV function intact Vital Signs: Temp Pulse Resp BP Pulse Ox 98.3 F 65 16 130/80 93 06/12/18 07:43 06/12/18 07:43 06/12/18 08:00 06/12/18 07:43 06/12/18 08:00 Laboratory Results - last 24 hr 06/12/18 06:22 Hgb 8.9 L Hct 26 L Plt Count 141 L MPV 8.2 ] Assessment: [s/p R TKA POD #2] Plan: [PT/OT - WBAT R LE Pain and nausea management Eliquis for DVT proph Plan for D/C home tomorrow]
[2018-06-12] MEDS ORDERED: Furosemide IV* 10 MG/ML VIAL (40 MG) IV ONE (18:01)
[2018-06-12] MEDS ORDERED: Furosemide IV* 10 MG/ML VIAL (40 MG) ONE (18:08)
--- NOTE | 2018-06-12 20:11 | PN ---
Subjective Date of Service: 06/12/18 Interval History: No acute events overnight Pt with queasiness yesterday and nausea today. Noted to be hypoxic to 82% on RA. Slept at a slight incline as otherwise would hurt back (usually on side) Weight up from 67kg to 74kg. CXR consistent with volume overload. Objective Active Medications: Acetaminophen (Tylenol Tab*) 975 mg PO Q8H [facility] Last Admin: 06/12/18 16:18 Dose: 975 mg Apixaban (Eliquis*) 2.5 mg PO BID [facility] Last Admin: 06/12/18 08:48 Dose: 2.5 mg Atenolol ([facility]ormin Tab*) [facility] [place] Last Admin: 06/12/18 08:48 Dose: 50 mg Atorvastatin Calcium (Lipitor*) 5 mg PO [facility] Last Admin: 06/12/18 08:48 Dose: 5 mg Bisacodyl (Dulcolax Supp*) 10 mg TN DAILY PRN PRN Reason: constipation Cyclobenzaprine HCl (Flexeril Tab*) 10 mg PO TID PRN PRN Reason: SPASMS Diphenhydramine HCl (Benadryl Iv*) 12.5 mg IV Q6H PRN PRN Reason: PRURITIS Docusate Sodium (Colace Cap*) 100 mg PO BID [facility] Last Admin: 06/12/18 08:47 Dose: 100 mg Escitalopram Oxalate (Lexapro *) 10 mg PO [facility] Last Admin: 06/12/18 08:47 Dose: 10 mg Fenofibrate (Tricor) 54 mg PO [facility] Last Admin: 06/12/18 08:49 Dose: 54 mg Lactulose (Lactulose*) 30 ml PO Q6H PRN PRN Reason: constipation Magnesium Hydroxide (Milk Of Magnesia Liq*) 30 ml PO BID [facility] Last Admin: 06/12/18 08:46 Dose: Not Given Magnesium Hydroxide (Milk Of Magnesia Liq*) 30 ml PO Q6H PRN PRN Reason: constipation Morphine Sulfate (Morphine Inj (Syringe))*) 2 mg IV Q2H PRN PRN Reason: PAIN Ondansetron HCl (Zofran Inj*) 4 mg IV Q6H PRN PRN Reason: nausea Last Admin: 06/12/18 14:00 Dose: 4 mg Ondansetron HCl (Zofran Odt Tab*) 4 mg PO Q6H PRN PRN Reason: NAUSEA Last Admin: 06/12/18 01:45 Dose: 4 mg Oxycodone HCl (Roxycodone Tab*) 10 mg PO Q4H PRN PRN Reason: SEVERE PAIN Oxycodone/Acetaminophen (Percocet 5/325 Tab*) 1 tab PO Q4H PRN PRN Reason: PAIN Last Admin: 06/11/18 06:09 Dose: 1 tab Oxycodone/Acetaminophen (Percocet 5/325 Tab*) 2 tab PO Q4H PRN PRN Reason: PAIN Last Admin: 06/11/18 11:27 Dose: 2 tab Polyethylene Glycol/Electrolytes (Miralax*) 17 gm PO DAILY PRN PRN Reason: Constipation Scopolamine (Transderm-Scop 1.5 Mg Patch*) 1 patch TRANSDERM Q72H [facility] Last Admin: 06/11/18 09:57 Dose: 1 patch Tramadol HCl (Ultram*) 50 mg PO Q6H PRN PRN Reason: PAIN Last Admin: 06/11/18 21:37 Dose: 50 mg Vital Signs - 8 hr 06/12/18 06/12/18 06/12/18 16:34 16:59 17:08 Temperature 98.6 F Pulse Rate 71 67 Respiratory 18 Rate Blood Pressure 169/91 200/110 180/104 (mmHg) O2 Sat by Pulse 83 90 90 Oximetry 06/12/18 06/12/18 17:21 17:52 Temperature Pulse Rate 65 Respiratory Rate Blood Pressure 168/100 (mmHg) O2 Sat by Pulse 94 93 Oximetry Oxygen Devices in Use Now: None Appearance: NAD Eyes: No Scleral Icterus Ears/Nose/Mouth/Throat: NL Teeth, Lips, Gums Neck: NL Appearance and Movements; NL JVP Respiratory: - - rales and bilateral bases. no rhonchi or wheezing. Cardiovascular: NL Sounds; No Murmurs; No JVD, RRR Abdominal: - - soft, nontender, slightly distended. 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 POD #2, course complicated by nausea and now hypoxia. CXR with mild pulm vascular congestion and small right plerural effusion and exam consistent with volume overload. - Patient Problems (1) Osteoarthritis Current Visit: Yes Status: Acute Code(s): M19.90 - UNSPECIFIED OSTEOARTHRITIS, UNSPECIFIED SITE SNOMED Code(s): 727801835 Comment: now POD #[address] Ibrahim RTK pain management per Ortho. bowel regimen. eliquis for dvt ppx (2) Hypoxia Current Visit: Yes Status: Acute Code(s): R09.02 - HYPOXEMIA SNOMED Code(s ): 236704830 Comment: suspect volume overload given rales and CXR findings of mild pulmonary edema and small pleural effusion on right. Lasix 40mg IV once now and 40mg po in AM. Adding on BNP. If elevated then would pursue ECHO which she has never had. No coughing or fevers. Weight up significantly. 7kg though also had ice pack on today. (3) HTN (hypertension) Current Visit: Yes Status: Acute Code(s): I10 - ESSENTIAL (PRIMARY) HYPERTENSION SNOMED Code(s): 33730912 Comment: continue atenolol. had been 140-150s but with nausea has been spiking up today to 180s. Adding lasix for suspected volume overload. add lisinopril 2.5mg once. (4) WPW (Wnlbp-Pmvnenacs-Zpzte syndrome) Current Visit: Yes Status: Acute Code(s): I45.6 - PRE-EXCITATION SYNDROME SNOMED Code(s): 90064409 Comment: iv procainmide or CV if RVR (5) HLD (hyperlipidemia) Current Visit: Yes Status: Acute Code(s): E78.5 - HYPERLIPIDEMIA, UNSPECIFIED SNOMED Code(s): 47253040 Comment: continue atorvastatin. Status and Disposition: medicine consulting. ortho primary.
[2018-06-12] MEDS ORDERED: Lisinopril TAB* 5 MG PO ONE (20:16)
[2018-06-13] MEDS: Acetaminophen TAB* 325 MG PO SCH ×2 (01:19→08:27)
[2018-06-13 05:49] LABS: Hematocrit 27 % (33-41); Hemoglobin 9.3 g/dL (12.0-16.0); Mean Platelet Volume 8.5 fL (7.4-10.4); Platelet Count 177 10^3/uL (150-450)
[2018-06-13 06:03] LABS: BUN/Creatinine Ratio 8.6 (8-20); Calcium 8.9 mg/dL (8.6-10.3); EGFR African American 86.1 (>60); EGFR Non-African American 71.2 (>60)
--- NOTE | 2018-06-13 07:48 | PN ---
Progress Note - Progress Note Date of Service: 06/13/18 SOAP: Subjective: [] Objective: [] Assessment: [] Plan: []
[2018-06-13] MEDS ORDERED: Furosemide TAB* 40 MG PO ONE (08:00)
[2018-06-13] MEDS: Apixaban* 2.5 MG TAB PO SCH (08:26)
[2018-06-13] MEDS: Atenolol TAB* 50 MG PO SCH (08:27)
[2018-06-13] MEDS: Escitalopram * 10 MG TAB PO SCH (08:27)
[2018-06-13] MEDS: Docusate CAP* 100 MG PO SCH (08:28)
[2018-06-13] MEDS: Atorvastatin* 10 MG TAB PO SCH (08:28)
[2018-06-13] MEDS: Magnesium Hydroxide LIQ* 30 ML UDC PO SCH (08:30)
[2018-06-13 11:55] VITALS: BP 124/78
--- NOTE | 2018-06-14 11:04 | DS ---
CC: Dr. Ibrahim; Ayse Mills NP* DISCHARGE SUMMARY: DATE OF ADMISSION: 06/10/18 DATE OF DISCHARGE: 06/13/18 PRIMARY DIAGNOSIS: Right knee total arthroplasty. SECONDARY DIAGNOSES: 1. Anemia due to acute blood loss. 2. Possible congestive heart failure. 3. Hypertension. 4. History of squamous cell cancer, removed from the skin. 5. Anxiety. 6. Hyperlipidemia. 7. B12 deficiency. 8. Wimbk-Erhndgpqp-Bnbgo syndrome. PROCEDURES: 1. RIGHT total knee arthroplasty by Dr. Ibrahim on 06/10/18 MEDICATIONS ON DISCHARGE: 1. Atenolol 50 mg p.o. q.a.m. 2. Cyanocobalamin 1000 mcg IM q. month. 3. Lexapro 10 mg p.o. q.a.m. 4. Fenofibrate 54 mg p.o. q.a.m. 5. Simvastatin 10 mg p.o. q.a.m. 6. Eliquis 2.5 mg p.o. b.i.d. Patient also has Percocet and Zofran prescribed preop from Orthopedics that she can use p.r.n. HOSPITAL COURSE: Patient was admitted for elective right total knee replacement. Prior to admission, she had cardiac consultation with Dr. Ponce regarding a history of Rgmdj-Deapkntgw-Nmrrp/preexcitation syndrome. The patient did not have any recurrence of arrhythmias during the hospital stay. She did have some postop pain in the right knee that led her to use opioid pain relief. This seemed to lead to episodes of nausea. Dr. Cochran of Medicine was consulted regarding postop care. He addressed the patient's blood pressure and nausea. On 06/12/18, the patient had hypoxia on room air and some orthopnea. The patient had a chest x-ray that demonstrated some vascular congestion and small right pleural effusion. Her BNP was 411. She was thought to have an episode of postop volume overload versus heart failure. She was given a diuretic and she had a good diuresis. On the day of discharge, she had saturations of 96% on room air. It is recommended the patient have an outpatient echocardiogram to assess for systolic or diastolic heart failure. Other lab tests on admission, the patient's admission hemoglobin was 9.9. This fell to 8.9 postop and jordyn to 9.3 on discharge. She also had a sodium of 139 on admission and a sodium of 130 on 06/13/18. The mild hyponatremia was not directly treated. DISPOSITION: To home, where she can have physical therapy for her knee. The knee pain was rated as mild to moderate on discharge and she felt she may not need any more pain medicine. The pathology on the explanted [place]ahu[place] knee is pending on discharge. She should see Dr. Ibrahim for followup within 1 week and see her primary care office also within 2 weeks. We recommend a repeat CBC at the primary care office due to her postop anemia along with iron studies. STATUS: inpatient. Her condition on discharge was stable. DIET: Low salt, low fat. ACTIVITY: To ambulate as tolerated with physical therapy. TIME SPENT: I spent more than 40 minutes arranging care for the patient, coordinating with Orthopedics, completing necessary documentation on the day of discharge. [id number]/[facility] #: [id number] MTDD
--- NOTE | 2018-06-14 20:20 | DS ---
DISCHARGE SUMMARY: DATE OF ADMISSION: 06/10/18 DATE OF DISCHARGE: 06/13/18 PROVIDER: Lynnette Ibrahim MD ADMITTING PHYSICIAN: Dr. Ibrahim.* (DICTATED BY MIKE PAULSON) ADMITTING DIAGNOSES: 1. Right knee osteoarthritis. 2. Hypertension. DISCHARGE DIAGNOSES: 1. Status post right total knee arthroplasty. 2. Hypertension. PROCEDURE: Right total knee arthroplasty. CONSULTANTS: Physical Therapy, Occupational Therapy, Medicine. BRIEF HISTORY: Ms. Rollins is a 62-year-old female with severe degenerative osteoarthritis of her right knee. She failed conservative treatment measures and elected to undergo a right total knee arthroplasty on 06/10/[address] Ibrahim. HOSPITAL COURSE: Ms. Rollins was admitted to [facility] on 06/10/18. She underwent an uncomplicated right total knee arthroplasty. Postoperatively, she recovered on a short-stay surgical unit. Her Crews catheter was removed on postoperative day #1 and she was able to urinate on her own. During her course of stay in the hospital, she experienced nausea, which improved with placement of a scopolamine patch and use of Zofran. She was able to advance her diet during the 3 days of her hospital stay. Her pain was well controlled with Percocet, and she used Eliquis for DVT prophylaxis. She was restarted on her home medications. Vital signs and labs remained stable. She was able to bear weight as tolerated on the right lower extremity. She advanced appropriately with Physical Therapy and Occupational Therapy. By postoperative day #3, she was orthopedically and medically stable for discharge home with services. PHYSICAL EXAM: General: On examination, the patient is noted to be calm and cooperative in no acute distress. She is alert and oriented x3. Vital Signs: On the day of discharge, temperature 98.8 degrees Fahrenheit, respiratory rate 16, pulse rate 67, O2 sat 94% on room air. Extremities: Examination of her right lower extremity demonstrates a dressing overlying the right knee which is clean, dry, and intact. Her calf is soft and nontender. Distally, she is neurovascularly intact. Gross motor is also intact. RADIOGRAPHS: Postoperative radiographs of the right knee demonstrate a right total knee arthroplasty with satisfactory prosthesis placement and no acute bony abnormalities. MEDICATIONS ON DISCHARGE: 1. Escitalopram 10 mg a day. 2. Atenolol 50 mg b.i.d. 3. Fenofibrate 54 mg daily. 4. Simvastatin 10 mg q.h.s. 5. Vitamin B12 monthly injection. 6. Tylenol as needed. 7. Percocet 5/325 mg 1 to 2 tabs p.o. q.4 to 6 hours p.r.n. pain. 8. Eliquis 2.5 mg b.i.d. 9. Zofran 4 mg q.6 hours p.r.n. nausea. CONDITION ON DISCHARGE: Stable. DISCHARGE INSTRUCTIONS: Ms. Rollins is a 62-year-old female, postoperative day # 3 status post right total knee arthroplasty which was uncomplicated. She is orthopedically and medically stable to be discharged home with services. She has stable vital signs and labs. She has restarted home medications. She will use Eliquis 2.5 mg b.i.d. for DVT prophylaxis and Percocet for pain management. She will remain weightbearing as tolerated with right lower extremity and have home physical therapy twice a day. She will follow up in the office with Dr. Ibrahim 10 to 14 days for incision check and suture removal. She was instructed to call Dr. Ibrahim immediately to the ER should she develop any new fevers, chills, incision pain, redness, or drainage. She was instructed to go immediately to the ER should she develop chest pain or shortness of breath. MIKE PAULSON [id number]/[facility] #: [id number] [facility]
== END 2018-06-13 14:15 | disposition home health service (06) | DRG 302 ==
LOC: AA 08:15 → SSU 13:31
PROVIDERS: ADMIT Orthopaedic Surgery Adult Reconstructive Orthopaedic Surgery; ATTEND Orthopaedic Surgery Adult Reconstructive Orthopaedic Surgery
PROC: 0SRC069 Replacement of Right Knee Joint with Oxidized Zirconium on Polyethylene Synthetic Substitute, Cemented, Open Approach (ICD-10-PCS; principal; 2018-06-10 11:00)
DX: M17.11 Unilateral primary osteoarthritis, right knee (principal); D62 Acute posthemorrhagic anemia; J90 Pleural effusion, not elsewhere classified; E87.1 Hypo-osmolality and hyponatremia; J81.1 Chronic pulmonary edema; I10 Essential (primary) hypertension; M21.061 Valgus deformity, not elsewhere classified, right knee; M25.461 Effusion, right knee; K21.9 Gastro-esophageal reflux disease without esophagitis; E78.00 Pure hypercholesterolemia, unspecified; G43.909 Migraine, unspecified, not intractable, without status migrainosus; E78.5 Hyperlipidemia, unspecified; F32.9 Major depressive disorder, single episode, unspecified; R11.0 Nausea; R09.02 Hypoxemia; I45.6 Pre-excitation syndrome; E53.8 Deficiency of other specified B group vitamins; M25.761 Osteophyte, right knee; R42 Dizziness and giddiness; F41.9 Anxiety disorder, unspecified; Z82.0 Family history of epilepsy and other diseases of the nervous system; Z85.828 Personal history of other malignant neoplasm of skin; Z79.01 Long term (current) use of anticoagulants; Z80.0 Family history of malignant neoplasm of digestive organs; Z82.49 Family history of ischemic heart disease and other diseases of the circulatory system; Z72.89 Other problems related to lifestyle; Z87.891 Personal history of nicotine dependence
CPT/HCPCS: 36415; 71045; 80048; 83735; 83880; 85014; 85018; 85049; 88305; 88311; A9270-GY; C1776; J0690; J1100; J1940; J2250; J2405; J2704; J2795; J3010

== ENCOUNTER 2019-03-10 15:15 | Inpatient (IN) | payer BC ==
--- NOTE | 2019-04-08 17:20 | HP ---
HISTORY AND PHYSICAL: DATE OF ADMISSION/SURGERY: 04/19/19 DATE OF OFFICE VISIT: 04/08/19 SURGEON: Lynnette Ibrahim MD * (DICTATED BY MIKE ASHFORD) PROCEDURE: Left total knee arthroplasty. CHIEF COMPLAINT: Left knee pain. HISTORY OF PRESENT ILLNESS: Ms. Rollins is a 63-year-old female with end-stage osteoarthritis of the left knee. She has failed conservative treatment and elected to proceed with a left total knee arthroplasty. PAST MEDICAL HISTORY: Hypertension, high cholesterol, and squamous cell carcinoma of the skin. PAST SURGICAL HISTORY: Right total knee arthroplasty, bunionectomy of the left foot, trigger thumb release, and a . CURRENT MEDICATIONS: 1. Cyclobenzaprine as needed. 2. Fenofibrate 54 mg daily. 3. Simvastatin 10 mg q.h.s. 4. Atenolol 50 mg twice a day. 5. Cyanocobalamin injections intramuscularly monthly. 6. Tylenol as needed. 7. Escitalopram 10 mg a day. ALLERGIES: No known drug allergies. FAMILY HISTORY: Cancer and coronary artery disease. SOCIAL HISTORY: She is a 63-year-old female. She lives with her . She does not smoke or use drugs. She does drink nightly alcohol. REVIEW OF SYSTEMS: A complete 14-point review of systems was reviewed with the patient. It was positive for some occasional shortness of breath. She denies history of DVT, PE, hepatitis, HIV, or anesthesia problems. PHYSICAL EXAMINATION GENERAL: She is well developed, well nourished, in no acute distress. VITAL SIGNS: She stands 62-1/2 inches tall, weighs 50 pounds. Her blood pressure is 136/80, her heart rate is 86. HEENT: Normocephalic, atraumatic. NECK: Supple. No palpable lymph nodes. PULMONARY: The lungs are clear to auscultation bilaterally. CARDIO: Regular rate and rhythm. Strong S1, S2. ABDOMEN: Soft, nontender, nondistended. NEUROLOGICAL: She is alert and oriented x3. MUSCULOSKELETAL: Left lower extremity: The skin is intact. There are no open wounds or abrasions. There is a moderate effusion of the left knee joint, some tenderness along the medial joint line. There is a 10-degree valgus deformity of the left knee. Range of motion is 5 to 120 degrees of flexion with patellofemoral crepitus. She is able to dorsiflex and plantarflex, has a 2+ dorsalis pedis pulse and intact sensation. ASSESSMENT AND PLAN: Ms. Rollins is a 63-year-old female with end-stage osteoarthritis of the left knee. She has failed conservative treatment and elected to proceed with a left total knee arthroplasty. The surgery is scheduled for 04/19/[address] Ibrahim. discussed the risks and benefits of the surgery at today's visit and all of her questions were answered. She will follow up with Dr. Ibrahim 2 weeks after the surgery. MIKE ASHFORD [id number]/[facility] #: [id number] MTDD
[2019-04-18] MEDS ORDERED: Buffered Lidocaine 1% SYRIN* 1 ML/SYRINGE INTRADERM ONE (14:30)
[2019-04-19] MEDS ORDERED: Tranexamic Acid 1,000 MG in NS 0.9% 50 ML* (outpatient use) IV SCH ×2
[2019-04-19] MEDS ORDERED: Gabapentin CAP(*) 300 MG PO ONE (06:00)
[2019-04-19] MEDS ORDERED: Famotidine IV* 10 MG/ML 2 ML (20 mg) IV ONE (06:00)
[2019-04-19] MEDS ORDERED: Lactated Ringers 1000 ML Bag* 1,000 ML IV SCH (06:00)
[2019-04-19] MEDS ORDERED: Dexamethasone IV* 4 MG/ML 1 ML (4 MG) IV SLOW PU ONE (06:00)
[2019-04-19] MEDS ORDERED: Scopolamine 1.5 mg* PATCH TRANSDERM ONE (06:00)
[2019-04-19] MEDS ORDERED: Dexamethasone IV* 4 MG/ML 1 ML (4 MG) ONE (07:43)
[2019-04-19] MEDS ORDERED: Gabapentin CAP(*) 300 MG ONE (07:44)
[2019-04-19] MEDS ORDERED: Scopolamine 1.5 mg* PATCH ONE (07:44)
[2019-04-19] MEDS ORDERED: celeCOXIB CAP* 200 MG ONE (07:44)
[2019-04-19] MEDS ORDERED: ceFAZolin 2 GM in NS PREMIX(*) 2 GM/100 ML BAG IVPB ONE (07:45)
[2019-04-19] MEDS ORDERED: Famotidine IV* 10 MG/ML 2 ML (20 mg) ONE (07:45)
[2019-04-19] MEDS ORDERED: celeCOXIB CAP* 200 MG PO ONE (08:00)
--- OUTSIDE RECORDS SUMMARY | 2019-04-19 08:00 | XMS REPORT | Continuity of Care Document ---
:1955 External Reference #:[id number] Author Name Lynnette Ibrahim M.D. 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 Onset: 04/24/2010 Localized, primary osteoarthritis of the Israel Funes MD Onset: 10/29/2016 hand Localized, primary osteoarthritis Lynnette Ibrahim M.D. Onset: 12/11/2017 Social History Type Date Description Comments Sex Unknown Tobacco Use Start: Unknown End: Former Cigarette Smoker Quit ~ 1982 Unknown 1 Pack Daily Smoking Status Reviewed: 04/08/19 Former Cigarette Smoker Quit ~ 1982 1 Pack Daily ETOH Use Currently consumes 2 glasses of wine alcohol daily ETOH Use Drinks 2 Alcoholic Beverages Per Day Tobacco Use Start: Unknown End: Patient is a former quit at age 28 Unknown smoker Recreational Drug Use Denies Drug Use Exercise Type/Frequency Exercises regularly Allergies, Adverse Reactions, Alerts Description No Known Drug Allergies Medications Active Medications SIG Qnty Indications Ordering Date Provider Amoxicillin 4 tabs 1 hour prior 4tabs Dmitri Varela, 07/23/2018 500mg Tablets to dental MD procedures Cyclobenzaprine HCL take 1 tab by mouth 90tabs Z47.1 Lynnette Ibrahim, 2018 10mg 2-3 times a day as M.D. Tablets needed BD use as directed for 6units Ayse Mills, 05/05/2017 3ml vitamin b 12 N.P. injection once a month Fenofibrate take 1 tablet by 90tabs Ayse Leahyderick, 04/24/2010 54mg Tablets mouth daily N.P. Syringes use as directed for 30unsolange Mills, 08/15/2009 25Gauge 1 Inch vitamin b12 N.P. injections once monthly Simvastatin take 1 tablet at 90tabs Ayse Mills, 10mg Tablets bedtime N.P. Atenolol Take 1 Tablet By 90tabs Ayse Leahyderick, 50mg Tablets Mouth Twice A Day N.P. Cyanocobalamin inject 1 1un Ayse Leahyderick, 1000mcg/ML milliliters N.P. Solution intramuscular once a month Tylenol Unknown Escitalopram Oxalate Take 1 Tablet By 30tabs Ayse Varn, 10mg Mouth Every Day N.P. Tablets Medications Administered in Office Medication SIG Qnty Indications Ordering Provider Date Synvisc Or Synvisc-One Injection 1 Lynnette Ibrahim M.D. 02/17/2018 MG Injection Synvisc Or Synvisc-One Injection 1 Lynnette Ibrahim M.D. 02/01/2018 MG Injection Synvisc Or Synvisc-One Injection 1 Lynnette Ibrahim M.D. 02/01/2018 MG Injection Synvisc Or Synvisc-One Injection Donald Ibrahim M.D. 01/25/2018 MG Injection Synvisc Or Synvisc-One Injection 1 Lynnette Ibrahim M.D. 01/25/2018 MG Injection Synvisc Or Synvisc-One Injection Donald Ibrahim M.D. 01/18/2018 MG Injection Depomedrol 40MG Lynnette Ibrahim M.D. 01/01/2018 Injection Depomedrol 40MG Lynnette Ibrahim M.D. 12/11/2017 Injection B-12 Injection Nurse Visit A 05/17/2013 Injection Immunizations CPT Code Status Date Vaccine Reaction Lot # [id number] Given 04/07/2019 Influenza Virus Vaccine, Quadrivalent, Split, Preservative Free 25482 Given 04/07/2019 Influenza Virus Vaccine, [id number] Quadrivalent, Split, Preservative Free 02303 Given 11/05/2018 Tetanus And Diptheria (Td) No immediate [id number] For Adult Use Preservative reaction..jh Free 29655 Given 11/05/2018 Pneumococcal Conjugate No immediate [id number] Vaccine 13 Valent For reaction... Intramuscular Use 20433 Given 11/12/2017 Influenza Virus Vaccine, Quadrivalent, Split, Preservative Free Q2039 Given 12/25/2015 Flu Vaccine NOS 58017 Given 11/25/2014 Influenza Virus Vaccine, Quadrivalent, Split, Preservative Free Q2037 Given 10/24/2013 Fluvirin Im 3Yrs And Older Q2037 Given 12/25/2012 Fluvirin Im 3Yrs And Older Q2035 Given 11/12/2011 Afluria Vaccine 91020 Given 11/06/2010 Influenza Virus 3Yrs & Over 34237 Given 11/06/2010 Influenza Virus 3Yrs & Over 52530 Given 11/06/2010 Influenza Virus 3Yrs & [id number] Over 45306 Given 12/06/2009 Influenza Virus 3Yrs & Over 94777 Given 12/13/2008 Influenza Virus 3Yrs & Over 79657 Given 09/02/2007 Tdap - Tetanus/Diptheria/Acellula r Pertussis Vital Signs Date Vital Result Comment 04/08/2019 2:04pm Weight 150.00 lb Heart Rate 86 /min BP Systolic 136 mmHg BP Diastolic 80 mmHg Body Temperature 98.2 F 04/07/2019 2:28pm Height 62.5 inches 5'2.50" Weight 156.00 lb Heart Rate 65 /min BP Systolic Sitting 179 mmHg Rue reg cuff BP Diastolic Sitting 99 mmHg Rue reg cuff Body Temperature 99.3 F O2 % BldC Oximetry 99 % BMI (Body Mass Index) 28.1 kg/m2 Results Test Acquired Date Facility Test Result H/L Range Note Lipid Profile [facility] Triglycerides 261 mg/dL 1 (Trig/Chol/HDL) [address] [place] [address] [phone] Cholesterol 228 mg/dL 2 HDL Cholesterol 82.8 mg/dL 3 LDL Cholesterol 93 mg/dL 4 Comp Metabolic 10/20/2018 [facility] Sodium 140 mmol/L Normal 135-[address] [facility] [place] [address] [phone] Potassium 4.1 mmol/L Normal 3.5-5.0 Chloride 105 mmol/L Normal 101-111 Co2 Carbon Dioxide 30 mmol/L Normal 22-32 Anion Gap 5 mmol/L Normal 2-11 Glucose 123 mg/dL High 70-100 Blood Urea Nitrogen 14 mg/dL Normal 6-24 Creatinine 0.77 mg/dL Normal 0.51-0.95 BUN/Creatinine Ratio 18.2 Normal 8-20 Calcium 9.6 mg/dL Normal 8.6-10.3 Total Protein 6.6 g/dL Normal 6.4-8.9 Albumin 4.4 g/dL Normal 3.2-5.2 Globulin 2.2 g/dL Normal 2-4 Albumin/Globulin Ratio 2.0 Normal 1-3 Total Bilirubin 0.90 mg/dL Normal 0.2-1.0 Alkaline Phosphatase 64 U/L Normal 34-104 Alt 17 U/L Normal 7-52 Ast 17 U/L Normal 13-39 Egfr Non- 75.2 >60 Egfr 91.0 >60 5 Laboratory test 10/20/2018 [facility] Vitamin B12 356 pg/mL Normal 180-914 6 finding [address] [place] [address] [phone] Desirable: <150 Borderline High: 150-199 High: 200-499 Very High: >500 2 Desirable: <200 Borderline High: 200-239 High: >239 3 Low: <40 Desirable: 40-60 High: >60 4 Desirable: <100 Near Optimal: 100-129 Borderline High: 130-159 High: 160-189 Very High: >189 5 Because ethnic data is not always readily [...] 15-29 5 Kidney failure <15 (or dialysis) 6 Normal Range 180 to 914 Indeterminate Range 145 to 180 Deficient Range <145 Procedures Date Code Description Status 04/07/2019 52094 EKG Tracing & Interpretation Completed 11/22/2018 [id number] Mammogram Completed 11/19/2017 [id number] Mammogram Completed 03/31/2017 [id number] Colonoscopy Completed 11/12/2016 [id number] Mammogram Completed 07/04/2015 [id number] Mammogram Completed 03/02/2014 [id number] Mammogram Completed 03/01/2013 [id number] Mammogram Completed 02/23/2012 [id number] Colonoscopy Completed 01/07/2012 [id number] Mammogram Completed 11/26/2010 [id number] Bone Mineral Density Test Completed 11/26/2010 [id number] Mammogram Completed 11/07/2009 [id number] Mammogram Completed 10/26/2006 [id number] Colonoscopy Completed 09/02/2006 [id number] Bone Mineral Density Test Completed Medical Devices Description No Information Available Encounters Type Date Location Provider Dx Diagnosis Office Visit 12/27/2018 [facility] Lynnette Ibrahim, M25.562 Pain in left knee 1:00p at [facility] M25.462 Effusion, left knee M17.12 Unilateral primary osteoarthritis, left knee Office Visit 11/05/2018 9:20a [facility] Internal Ayse Mills, Z00.00 Encntr for Medicine - Ccmob N.P. general adult medical exam w/o abnormal findings Z12.31 Encntr screen mammogram for malignant neoplasm of breast I10 Essential (primary) hypertension D51.9 Vitamin B12 deficiency anemia, unspecified E78.00 Pure hypercholesterolemia, unspecified N95.8 Other specified menopausal and perimenopausal disorders Z23 Encounter for immunization Assessments Date Code Description Provider 04/08/2019 M25.562 Pain in left knee Lynnette Ibrahim M.D. 04/08/2019 M25.462 Effusion, left knee Lynnette Ibrahim M.D. 04/08/2019 M17.12 Unilateral primary osteoarthritis, left Lynnette Ibrahim M.D. knee 04/07/2019 Z01.818 Encounter for other preprocedural Anila Melton M.D., FACP examination 04/07/2019 I10 Essential (primary) hypertension Anila Melton M.D., FACP 04/07/2019 M17.12 Unilateral primary osteoarthritis, left Anila Melton M.D. , FACP knee 04/07/2019 Z23 Encounter for immunization Anila Melton M.D., FACP 12/27/2018 M25.562 Pain in left knee Lynnette Ibrahim M.D. 12/27/2018 M25.462 Effusion, left knee Lynnette Ibrahim M.D. 12/27/2018 M17.12 Unilateral primary osteoarthritis, left Lynnette Ibrahim M.D. knee 11/05/2018 Z00.00 Encounter for general adult medical Ayse Mills, N.P. examination without abnormal findings 11/05/2018 Z12.31 Encounter for screening mammogram for Ayse Mills, N.P. malignant neoplasm of breast 11/05/2018 I10 Essential (primary) hypertension Ayse Varn, N.P. 11/05/2018 D51.9 Vitamin B12 deficiency anemia, unspecified Ayse Varn, N.P. 11/05/2018 E78.00 Pure hypercholesterolemia, unspecified Ayse Varn, N.P. 11/05/2018 N95.8 Other specified menopausal and Ayse Varn, N.P. perimenopausal disorders 11/05/2018 Z23 Encounter for immunization Ayse Varn, N.P. Plan of Treatment Future Appointment(s):05/04/2019 11:00 am - Lynnette Ibrahim M.D. at [facility] at [place]/14/2019 11:45 am - Batool Valentine M.D. at [facility]05/19/2019 4:00 pm - Anila Melton M.D., FACP at [facility] - [facility]04/19/2019 4:30 pm - Lynnette Ibrahim M.D. at [facility] at [place]04/08/2019 - Lynntete Ibrahim M.D.M25.562 Pain in left kneeFollow up:Follow up: 2 weeks after [id number] Effusion, left kneeM17.12 Unilateral primary osteoarthritis, left knee Functional Status Description No Information Available Mental Status Description No Information Available Referrals Description No Information Available
--- OUTSIDE RECORDS SUMMARY | 2019-04-19 08:00 | XMS REPORT | Continuity of Care Document ---
:1955 External Reference #:[id number] Author Name Anila Melton M.D., FACP (transmitted by agent of provider Aidee Napier) Address [address], [place] [address] Care Team Providers Name Role Phone Tory Crowell MD - Internal Care Team Information Gun Number [id number] [id number] Medicine Problems Active Problems Provider Date Mixed [...] Unknown 1 Pack Daily Smoking Status Reviewed: 04/07/19 Former Cigarette Smoker Quit ~ 1982 1 [...] daily N.P. Syringes use as directed for 30units Ayse Leahyderick, 08/15/2009 25Gauge 1 Inch vitamin b12 N.P. injections once monthly Simvastatin take 1 tablet at 90tabs Ayse Mills, 10mg Tablets bedtime N.P. Atenolol Take 1 Tablet By 90tabs Ayse Gene, 50mg Tablets Mouth Twice A Day N.P. Cyanocobalamin inject 1 1units Ayse Leahyderick, 1000mcg/ML milliliters N.P. Solution intramuscular [...] Or Synvisc-One Injection 1 Lynnette Ibrahim M.D. 01/18/2018 MG Injection Depomedrol 40MG Lynnette Ibrahim M.D. 01/01/2018 Injection Depomedrol 40MG Lynnette Ibrahim M.D. 12/11/2017 Injection B-12 Injection Nurse Visit A 05/17/2013 Injection Immunizations CPT Code Status Date Vaccine Reaction Lot # [id number] Given 04/07/2019 Influenza Virus Vaccine, Quadrivalent, Split, Preservative Free 36152 Given 04/07/2019 Influenza Virus Vaccine, [id number] Quadrivalent, Split, Preservative Free 07272 Given 11/05/2018 Tetanus And Diptheria (Td) No immediate [id number] For Adult Use Preservative reaction..jh Free 77641 Given 11/05/2018 Pneumococcal Conjugate No immediate [id number] Vaccine 13 Valent For reaction... Intramuscular Use 89354 Given 11/12/2017 Influenza Virus Vaccine, Quadrivalent, Split, Preservative Free Q2039 Given 12/25/2015 Flu Vaccine NOS 64156 Given 11/25/2014 Influenza Virus Vaccine, Quadrivalent, Split, Preservative Free Q2037 Given 10/24/2013 Fluvirin Im 3Yrs And Older Q2037 Given 12/25/2012 Fluvirin Im 3Yrs And Older Q2035 Given 11/12/2011 Afluria Vaccine 86733 Given 11/06/2010 Influenza Virus 3Yrs & Over 15822 Given 11/06/2010 Influenza Virus 3Yrs & Over 82306 Given 11/06/2010 Influenza Virus 3Yrs & [id number] Over 26316 Given 12/06/2009 Influenza Virus 3Yrs & Over 90305 Given 12/13/2008 Influenza Virus 3Yrs & Over 61117 Given 09/02/2007 Tdap - Tetanus/Diptheria/Acellula r Pertussis Vital Signs Date Vital Result Comment 04/07/2019 2:28pm Height 62.5 inches 5'2.50" Weight 156.00 lb Heart Rate 65 /min BP Systolic Sitting 179 mmHg Rue reg cuff BP Diastolic Sitting 99 mmHg Rue reg cuff Body Temperature 99.3 F O2 % BldC Oximetry 99 % BMI (Body Mass Index) 28.1 kg/m2 12/27/2018 1:04pm Height 62.5 inches 5'2.50" Weight 145.00 lb BP Systolic 136 mmHg BP Diastolic 82 mmHg Respiratory Rate 16 /min Pain Level 3 BMI (Body Mass Index) 26.1 kg/m2 Results Test Acquired Date Facility Test Result H/L Range Note Lipid Profile 10/20/2018 [facility] Triglycerides 261 mg/dL 1 (Trig/Chol/HDL) [address] [place] [address] [phone] Cholesterol 228 mg/dL 2 HDL Cholesterol 82.8 mg/dL 3 LDL Cholesterol 93 mg/dL 4 Comp Metabolic 10/20/2018 [facility] Sodium 140 mmol/L Normal 135-145 Panel [address] [place] [address] [phone] Potassium 4.1 mmol/L Normal 3.5-5.0 Chloride 105 [...] Egfr 91.0 >60 5 Laboratory test 10/20/2018 [facility] Vitamin B12 356 pg/mL Normal 180-914 6 finding [address] [place] [address] [phone] Desirable: <150 Borderline High: 150-199 High: [...] <145 Procedures Date Code Description Status 04/07/2019 92970 EKG Tracing & Interpretation Completed 11/22/2018 [id number] Mammogram Completed 11/19/2017 [id number] Mammogram Completed 03/31/2017 [id number] Colonoscopy Completed 11/12/2016 [id number] Mammogram Completed 07/04/2015 [id number] Mammogram Completed 03/02/2014 [id number] Mammogram Completed 03/01/2013 [id number] Mammogram Completed 02/23/2012 [id number] Colonoscopy Completed 01/07/2012 [id number] Mammogram Completed 11/26/2010 [id number] Bone Mineral Density Test Completed 11/26/2010 [id number] Mammogram Completed 11/07/2009 [id number] Mammogram Completed 10/26/2006 [id number] Colonoscopy Completed 09/02/2006 [id number] Bone Mineral Density Test Completed Medical Devices Description No Information Available Encounters Type Date Location Provider Dx Diagnosis Office Visit 12/27/2018 [facility] Lynnette Ibrahim, M25.562 Pain in left knee 1:00p at [facility] M25.462 Effusion, left knee M17.12 Unilateral primary osteoarthritis, left knee Office Visit 11/05/2018 9:20a [facility] Internal Ayse Mills, Z00.00 Encntr for Medicine - Ccmob N.P. general adult medical exam w/o abnormal findings Z12.31 Encntr screen mammogram for malignant neoplasm of breast I10 Essential (primary) hypertension D51.9 Vitamin B12 deficiency anemia, unspecified E78.00 Pure hypercholesterolemia, unspecified N95.8 Other specified menopausal and perimenopausal disorders Z23 Encounter for immunization Assessments Date Code Description Provider 04/07/2019 Z01.818 Encounter for other preprocedural Anila Melton M.D., FACP examination 04/07/2019 I10 Essential (primary) hypertension Anlia Melton M.D., FACP 04/07/2019 M17.12 Unilateral primary osteoarthritis, left Anila Linh, M.D. , [facility] knee 04/07/2019 Z23 Encounter for immunization Anila Melton M.D., [facility] 12/27/2018 M25.562 Pain in left knee Lynnette Ibrahim M.D. 12/27/2018 M25.462 Effusion, left knee Lynnette Ibrahim M.D. 12/27/2018 M17.12 Unilateral primary osteoarthritis, left Lynnette Ibrahim M.D. knee 11/05/2018 Z00.00 Encounter for general adult medical Ayse Varn, N.P. examination without abnormal findings 11/05/2018 Z12.31 Encounter for screening mammogram for Ayse Varn, N.P. malignant neoplasm of breast 11/05/2018 I10 Essential (primary) hypertension Ayse Varn, N.P. 11/05/2018 D51.9 Vitamin B12 deficiency anemia, unspecified Ayse Varn, N.P. 11/05/2018 E78.00 Pure hypercholesterolemia, unspecified Ayse Varn, N.P. 11/05/2018 N95.8 Other specified menopausal and Ayse Varn, N.P. perimenopausal disorders 11/05/2018 Z23 Encounter for immunization Ayse Varn, N.P. Plan of Treatment Future Appointment(s):05/19/2019 4:00 pm - Anila Melton M.D., FACP at [facility] Internal Medicine - [facility]04/08/2019 2:00 pm - Lynnette Ibrahim M.D. at [facility] at [place]/19/2019 4:30 pm - Lynnette Ibrahim M.D. at [facility] at [place]04/07/2019 - Anila Melton M.D., FACPZ01.818 Encounter for other preprocedural examinationComments:MEDICAL CLEARANCE PRIOR TO SURGERY:I will contact your surgeon with the results of today's visit.Unless you are told otherwise, you should take all your usual oral medications on the day of your intended procedure with water. I have a low threshold to check an exercise stress test so to have an functional understanding of your heart. I will discuss this with Dr. Ponce.I recommend that you avoid aspirin or aspirin containing products 7-10 days prior to surgery.Follow up:As needed.I10 Essential (primary) hypertensionComments:HYPERTENSION:The current paradigm in medicine is "the lower, the better". I think that it would be a good idea to check your bp's periodically over ther course of a day to see where you generally run.It is very important for you to take your meds daily. Alcohol will also increase your bp. Try to cutback.M17.12 Unilateral primary osteoarthritis, left kneeComments:LEFT KNEE PAIN/ osteoarthritis:For TKRZ23 Encounter for hfvtfmqnrfxdQ85.818 Encounter for other preprocedural examinationComments:MEDICAL CLEARANCE PRIOR TO SURGERY:I will contact your surgeon with the results of today's visit.Unless you are told otherwise, you should take all your usual oral medications on the day of your intended procedure with water. I have a low threshold to check an exercise stress test so to have an functional understanding of your heart. I will discuss this with Dr. Ponce.I recommend that you avoid aspirin or aspirin containing products 7- 10 days prior to surgery.Follow up:As needed.I10 Essential (primary) hypertensionComments:HYPERTENSION:The current paradigm in medicine is "the lower , the better". I think that it would be a good idea to check your bp's periodically over ther course of a day to see where you generally run.It is very important for you to take your meds daily. Alcohol will also increase your bp. Try to cutback.M17.12 Unilateral primary osteoarthritis, left kneeComments: LEFT KNEE PAIN/ osteoarthritis:For TKRZ23 Encounter for immunization Functional Status Description No Information Available Mental Status Description No Information Available Referrals Description No Information Available
[2019-04-19] MEDS ORDERED: ROPIVACAINE 5 MG/ML 30 ML BTL (0.5%) ONE ×2 (10:01→10:35)
[2019-04-19] MEDS ORDERED: fentaNYL* 50 MCG/ML 2 ML VIAL (100 MCG VIAL) IV PRN (10:21)
[2019-04-19] MEDS ORDERED: PROCHLORPERAZINE INJ 5 MG/ML 2 ML VIAL IV PRN ×2 (10:21→15:27)
[2019-04-19] MEDS ORDERED: Naloxone* 0.4 MG/ML 1 ML VIAL IV PRN (10:21)
[2019-04-19] MEDS ORDERED: fentaNYL* 50 MCG/ML 2 ML VIAL (100 MCG VIAL) ONE (10:22)
[2019-04-19] MEDS ORDERED: Midazolam* 1 MG/ML 5 ML VIAL (5 MG) ONE (10:22)
[2019-04-19] MEDS ORDERED: Bupivacaine 0.5% SDV PF* 30ML VIAL ONE (11:02)
[2019-04-19] MEDS ORDERED: Propofol* 500 MG/50 ML BTL ONE (11:19)
[2019-04-19] MEDS ORDERED: Lidocaine 2% PF * 5 ML VIAL ONE (11:19)
[2019-04-19] MEDS ORDERED: diPHENhydraMINE IV* 50 MG/ML 1 ml VIAL (BENADRYL) IV PRN (13:27)
[2019-04-19] MEDS ORDERED: Ondansetron INJ* 2 MG/ML VIAL IV PRN (13:27)
[2019-04-19] MEDS ORDERED: oxyCODONE TAB* 5 MG TAB PO PRN (13:27)
[2019-04-19] MEDS ORDERED: oxyCODONE/Acetamin 5/325 MG* TAB PO PRN ×2 (13:27)
[2019-04-19] MEDS ORDERED: Magnesium Hydroxide LIQ* 30 ML UDC PO PRN (13:27)
[2019-04-19] MEDS ORDERED: Ondansetron ODT TAB* 4 MG PO PRN (13:27)
[2019-04-19] MEDS ORDERED: diPHENhydraMINE PO* 25 MG PO PRN (13:27)
[2019-04-19] MEDS ORDERED: Cyclobenzaprine TAB* 10 MG PO PRN (13:27)
[2019-04-19] MEDS ORDERED: Morphine INJ* 2 MG/ML 1 ML SYRINGE (TWO MG - NEW SYRINGE VERSION) IV PRN (13:27)
--- NOTE | 2019-04-19 15:34 | PN ---
Progress Note - Progress Note Date of Service: 04/19/19 Note: Pt seen at bedside. SHe feels well without complaint. Denies CP, SOB, dizziness , nausea. Dressing CDI, df/pf intact, dp2+, sensation intact to light touch distally. Desires tramadol for pain control. Struggled with nausea post op in the past, zofran, compazine and scop patch available
[2019-04-19] MEDS: traMADol TAB* 50 MG PO PRN ×2 (16:00→22:05)
[2019-04-19] MEDS: Lactated Ringers 1000 ML Bag* 1,000 ML IV SCH (16:05)
--- NOTE | 2019-04-19 17:40 | OP ---
Operative Report - Blank - Operative Report Date of Operation: 04/19/19 Note: DARIUS VIGIL 1955 Date of Surgery: 04/19/19 Lynnette Ibrahim MD Drier And Grinder Tender: Blayne MCKEON did help throughout the procedure with preparation of the knee, wound retraction, manipulation of the knee, and wound closure. Anesthesiologist: Dr. Yoo Anesthesia Type: Spinal Preoperative Diagnosis: Left severe degenerative osteoarthritis of the knee Postoperative Diagnosis: As above Procedure Performed: Left Total Knee Arthroplasty Tourniquet time: 37 minutes Complications: None Specimen: Bone and cartilage from the left knee joint sent to pathology. Hardware Used: Cemented Roth and Nephew total knee hardware was used - For the femur a size 5 narrow left oxinium legion posterior stabilized femoral component , for the tibia a size 3 left xiomy II tibial baseplate, for the insert a size 9mm 3-4 posterior stabilized articular polyethylene insert, and for the patella a size 32 3-peg all poly patella. Brief History/Indication: DARIUS VIGIL was known in clinic and had a history of severe left knee pain and swelling. She failed conservative treatment with anti-inflammatories, pain pills, intra-articular injections and physical therapy. She elected to undergo left total knee arthroplasty due to continued pain and decreased quality of life. Radiographs showed severe end stage osteoarthritis of the knee with bone on bone contact. Informed consent was obtained from the patient. She understood the risks of surgery included but were not limited to: bleeding, infection, damage to nearby structures, intraoperative fracture, nerve palsy, failure of the hardware, early loosening, knee stiffness or loss of motion, anesthesia complications, stroke, heart attack , blood clot and . She wished to proceed. Intra-Operative Findings: Intraoperatively the patient was noted to have severe loss of cartilage in all 3 compartments of the knee. Description of the Procedure: DARIUS VIGIL was identified in the preanesthesia unit. Her left knee was marked as the correct operative side. Informed consent was signed and placed in the chart. The patient was taken to the operating room and placed under anesthesia without complication. A perera catheter was placed. A tourniquet was placed on the left thigh. The left lower extremity was prepped and draped in the usual sterile fashion. Preoperative time-out was made to correctly identify the patient, side and site. Appropriate intraoperative antibiotics were given within one hour of incision. Tourniquet was inflated. A midline incision was made and carried sharply down to the extensor mechanism. A new 10 blade was used to make a standard medial parapatellar arthrotomy. The patella was subluxed laterally. Electrocautery was used to dissect soft tissue off the superomedial tibia to the midsagittal plane. The knee was flexed up. The anterior horn of the lateral meniscus and the ACL were sharply incised. A drill was used to enter the distal femur. The intramedullary distal femoral cutting guide was pinned on the distal femur. The oscillating saw was used to make the distal femoral cut. The external rotation guide was pinned on the distal femur and the distal femur was sized to a size 5. The size 5 multi-cutting jig was pinned on the distal femur. The oscillating saw was used to make the appropriate 4 chamfer cuts. Next the PCL was completely released. The extramedullary tibial cutting guide was pinned on the proximal tibia and the oscillating saw was used to make the proximal tibial cut perpendicular to the mechanical axis of the tibia. The bone was carefully removed. The knee was brought out into full extension. The spacer block was placed and had excellent fit with the knee in full extension. The medial and lateral ligaments were well balanced. The flexion and extension gaps were well balanced. The knee was flexed up. Lamina traveling storekeeper was placed both medially and laterally. Any remaining meniscus was removed with electrocautery. Curved osteotome was used to remove any posterior osteophytes. The tibial tray and drop maricruz were placed and confirmed a satisfactory tibial cut. The size 5 left narrow femoral trial was impacted onto the distal femur. This trial had excellent fit and stability. The box for the posterior stabilized implant was prepared using a box cut osteotome and a reamer. Next a tibial tray trial and 9 mm insert trial was placed. The knee was taken through a range of motion and had full extension to 130 degrees of flexion. Patellofemoral tracking was satisfactory. The patella was inverted and sized to a size 32. Three peg holes were drilled through the size 32 drill guide. The trial patella was placed and the knee was taken through a range of motion. There was satisfactory patellofemoral tracking. All trials were removed. The tibia was subluxed anteriorly and sized to a size 3. The proximal tibial was prepared with a size 3 keel punch. All bony cut surfaces were irrigated with sterile saline and dried. Final implants were cemented into place starting with the tibia, followed by the femur, and last the patella. A 9 mm insert trial was placed and the knee was brought into full extension. Tourniquet was turned down and the knee was copiously irrigated with sterile saline. Electrocautery was used to obtain meticulous hemostasis. Once the cement had fully cured, the insert trial was removed. Any excess cement was removed from around the hardware and capsule. Final insert chosen was a 9 mm posterior stabilized Xiomy II articular insert size 3-4. Stability of the insert was checked and noted to be stable. The extensor mechanism was closed using number 1 vicryls. The rest of the incision was closed in a layered fashion using 0 and 2-0 vicryls. The skin was closed using 3-0 nylon suture. Sterile xeroform, 4x4s and webril were used to cover the incision. Jani wrap and cold pack were used to cover the dressings. The patients anesthesia was reversed without difficulty. She was taken to the PACU in stable condition. Intended weight-bearing will be as tolerated.
[2019-04-19] MEDS: Acetaminophen TAB* 325 MG PO PRN (18:44)
[2019-04-19] MEDS: Docusate CAP* 100 MG PO SCH (19:36)
[2019-04-19] MEDS: Magnesium Hydroxide LIQ* 30 ML UDC PO SCH (19:36)
[2019-04-19] MEDS: ceFAZolin 1 GM ADVAN(*) 1 GM in NS 0.9% 50 ML* 50 ML IVPB SCH (19:36)
--- NOTE | 2019-04-19 20:09 | CONSULT ---
Consult Consult: HOSPITALIST CONSULTATION Date of Consultation: 04/19/19 Requesting Provider: Dr. Ibrahim Reason for Consultation: medical co management HPI: Ms Rollins is a 63 yo F who has a h/o HTN and OA is admitted post L TKA. The patient has been deemed to have end stage OA involving the L knee that failed conservative management. She states currently she is feeling well. She denies any nausea. She has gotten up to the chair. Her pain is well controlled currently. She is trying to decide if she wants the perera out now or wait until tomorrow AM. Prior to presenting for her operation she stated she had been having some SOB. Because of this she underwent stress testing. No SOB at this time. No chest pain. PMHx: HTN, HLD, OA PSHx: R TKA, L foot bunionectomy, trigger thumb release, All: oxycodone, adhesive tape, latex Meds: Home and current medications reviewed FamHx: +for CAD in mom, dad had colon cancer SocHx: pt is a former smoker, quit at age 28; drinks EtOH nightly; . ROS: complete 11 system ROS obtained, pertinent positives and negatives as per HPI and otherwise negative. PE: BP 145/87 HR 71 RR 16 T 97.6 O2 sat 100% on RA gen: awake, sitting up in chair, NAD HEENT: EOMI, oropharynx clear and moist Card: nl S1S2 RRR, no LE edema Lungs: few bibasilar crackles Abd: BS+ soft, NT, ND Musculo: L knee in post op dressing with cryounit in place Neuro: nl UE strength bilaterally, LE strength not tested at this time Skin: no rash Psych: A&Ox3 A/P: Ms Rollins is a 63 yo F who has a h/o HTN and HLD who underwent elective L TKA. 1. L TKA: management per orthopedics including DVT prophylaxis. 2. HTN: pt's BP is moderately elevated despite pain being relatively controlled. She tells me that preoperatively when she would check her BP at home her SBP was typically in the 150-160's. Will continue atenolol 50mg daily. Monitor BP and if BP is still elevated will consider adding amlodipine 5mg daily to achieve better control. 3. HLD: continue statin. 4. Depression: continue lexapro. 5. DVT-P: eliquis to start tomorrow AM 6. Full code
[2019-04-20] MEDS: Lactated Ringers 1000 ML Bag* 1,000 ML IV SCH (01:27)
[2019-04-20] MEDS: Acetaminophen TAB* 325 MG PO PRN ×2 (01:31→09:31)
[2019-04-20] MEDS: traMADol TAB* 50 MG PO PRN ×2 (03:53→12:19)
[2019-04-20] MEDS: ceFAZolin 1 GM ADVAN(*) 1 GM in NS 0.9% 50 ML* 50 ML IVPB SCH ×2 (03:54→11:22)
[2019-04-20 06:46] LABS: Hematocrit 30 % (35-47); Hemoglobin 10.2 g/dL (12.0-16.0); Platelet Count 179 10^3/uL (150-450)
[2019-04-20 07:01] LABS: BUN/Creatinine Ratio 13.4 (8-20); Calcium 8.8 mg/dL (8.6-10.3); EGFR African American 106.9 (>60); EGFR Non-African American 88.3 (>60); Potassium 4.2 mmol/L (3.5-5.0)
[2019-04-20] MEDS: Magnesium Hydroxide LIQ* 30 ML UDC PO SCH (08:37)
[2019-04-20] MEDS: Docusate CAP* 100 MG PO SCH (08:39)
[2019-04-20] MEDS ORDERED: Atenolol TAB* 50 MG PO SCH (09:00)
[2019-04-20] MEDS ORDERED: Vitamin THERAPEUTIC TAB PO SCH (09:00)
[2019-04-20] MEDS ORDERED: Escitalopram * 10 MG TAB PO SCH (09:00)
[2019-04-20] MEDS ORDERED: Apixaban* 2.5 MG TAB PO SCH (09:00)
[2019-04-20] MEDS ORDERED: Atorvastatin* 10 MG TAB PO SCH (09:00)
[2019-04-20 11:14] VITALS: BP 116/77
--- NOTE | 2019-04-20 12:20 | DS ---
Orthopedic Discharge Summary - Discharge Summary Date of Admission:04/19/19 Date of Discharge: 04/20/19 Date of Surgery: 04/19/19 Attending Orthopedic Provider: Dr Ibrahim Pre-operative Diagnosis: Left knee osteoarthritis Operative Procedure: left total knee replacement Disposition of Patient: home Home care vs Outpatient services: outpatient Condition of Patient: stable Pain medication RX at discharge: tramasol 50 mg 1-2 tabs q 6 hr mdd 8 DVT prophylaxis RX at discharge: eliquis 2.5 mg po bid x 30 days History: DARIUS VIGIL is a 63 year old F with years of increasingly severe left knee pain. Patient has failed conservative management and has elected to undergo a left total knee replacement Hospital Course: DARIUS was admitted to [facility] on 04/19/19. Patient underwent a left total knee replacement without complication followed by a brief recovery in PACU and transfer to the Short Stay Surgical Unit in stable condition. Our hospitalist service, physical therapy and occupational therapy also participated in this patients care. Post-op day 1: Pt seen at bedside. She feels well without CP, SOB, dizziness, nausea. Knee pain is well controlled and she desires DC home. patient was alert and in no acute distress. Dressing was clean, dry and intact. Operative extremity dorsiflexion and plantarflexion intact, sensation intact to light touch distally, DP2+. Prior to discharge: dressing was changed, incision was clean, dry and intact. Patient was deemed to be medically and orthopedically stable for discharge. Physical therapy goals were met. Home Medications Medication Instructions Recorded Confirmed Type Atenolol TAB* Tenormin TAB* 50 MG 50 mg PO QAM 11/27/16 04/19/19 History Cyanocobalamin INJ * [Vitamin B12 1,000 mcg IM MONTHLY 11/27/16 04/08/19 History INJ *] Fenofibrate [Tricor] 54 mg PO QAM 11/27/16 04/19/19 History Simvastatin [Zocor 5 MG-] 10 mg PO QAM 11/27/16 04/19/19 History Escitalopram Oxalate [Lexapro 10 10 mg PO QAM 05/31/18 04/19/19 History mg] Amoxicillin 2,000 mg PO SEE INSTRUCTIONS 04/08/19 04/08/19 History Acetaminophen TAB* [Tylenol TAB*] 650 mg PO Q8HR PRN tab 04/20/19 Rx Apixaban* [Eliquis*] 2.5 mg PO BID #60 tab 04/20/19 Rx Docusate CAP* [Colace Cap*] 100 mg PO BID PRN #50 cap 04/20/19 Rx traMADol TAB* [Ultram*] 50 mg PO Q6H PRN #50 tab MDD 8 04/20/19 Rx Discharge Instructions following Orthopedic Surgery: Activity: * Weight Bearing as tolerated * Continue physical therapy and occupational therapy exercises as shown * you have elected outpatient physical therapy, please start therapy as an outpatient right away. Wound care: * OK to shower on post-op day 3, no bathing, swimming, or submerging wound. * Use gentle soap, pat dry. Cover with gauze, KADE wrap or tape. Call Orthopedic office for: * Increased drainage * Redness * Increased pain * Fever Go to ER with shortness of breath or chest pain. Diet: * Regular diet * Increase fluids and fiber to prevent constipation. * Continue to use stool softeners, call office if no bowel motion within 48 hours. Medications See Home Medication List in your packet for medications that you should take after discharge. DVT Prophylaxis: Eliquis Dosin.5 mg, 1 tab every 12 hours x 30 days. Increases bleeding tendency Pain Control: Tramadol 50 mg tabs: take 1 tab for moderate pain and 2 tabs for every pain every 6 hours as needed. Max 8 per day. Hold for sedation, wean off as soon as pain allows. Antibiotics are required prior to any dental work. FOLLOW UP: Follow up with Dr. Randall] Within [10-14] days, call for appointment Please call our office with any questions or concerns ([phone]) RX [facility] [place]
[2019-04-22] MEDS ORDERED: Scopolamine PATCH Remove* 1 NOTE MISC PATCH OFF ONE (08:00)
== END 2019-04-20 15:07 | disposition home or self-care (01) | DRG 302 ==
LOC: AA 04-19 07:55 → SSU 04-19 13:27
PROVIDERS: ADMIT Orthopaedic Surgery Adult Reconstructive Orthopaedic Surgery; ATTEND Orthopaedic Surgery Adult Reconstructive Orthopaedic Surgery
PROC: 0SRD069 Replacement of Left Knee Joint with Oxidized Zirconium on Polyethylene Synthetic Substitute, Cemented, Open Approach (ICD-10-PCS; principal; 2019-04-19 11:00)
DX: M17.12 Unilateral primary osteoarthritis, left knee (principal); I10 Essential (primary) hypertension; Z96.651 Presence of right artificial knee joint; F32.9 Major depressive disorder, single episode, unspecified; M25.762 Osteophyte, left knee; E78.2 Mixed hyperlipidemia; G43.909 Migraine, unspecified, not intractable, without status migrainosus; E78.00 Pure hypercholesterolemia, unspecified; M21.052 Valgus deformity, not elsewhere classified, left hip; Z79.899 Other long term (current) drug therapy; Z88.5 Allergy status to narcotic agent; Z91.040 Latex allergy status; Z91.048 Other nonmedicinal substance allergy status; Z87.891 Personal history of nicotine dependence; Z85.828 Personal history of other malignant neoplasm of skin
CPT/HCPCS: 36415; 80048; 85014; 85018; 85049; 88305; 88311; A9270-GY; C1776; J0690; J1100; J2250; J2704; J2795; J3010; J3490